=== PATIENT | female | born 1960 | race Caucasian/White ===

== ENCOUNTER 2021-08-28 19:52 | Outpatient (CLI) | payer MEDICARE, MEDICAID | END 2021-08-28 19:53 | disposition critical access hospital (66) | LOC: EMS 19:52 | DX: R06.02 Shortness of breath (principal); R07.9 Chest pain, unspecified; R06.2 Wheezing; R53.1 Weakness | CPT/HCPCS: A0425; A0427 ==

== ENCOUNTER 2021-08-28 20:17 | Inpatient (IN) | payer MEDICARE, MEDICAID ==
[2021-08-28] MEDS ORDERED: ALBUTEROL NEB 2.5 MG/3 ML INH STA ×2 (20:32→20:41)
[2021-08-28] MEDS ORDERED: MORPHINE 2 MG/ML CARPUJECT IVP STA ×2 (20:32→22:03)
--- NOTE | 2021-08-28 20:35 | ED Physician Documentation ---
PD HPI DYSPNEA - Stated complaint Stated Complaint: CP/SOA - Chief complaint Chief Complaint: Cardiac - History obtained from History obtained from: Patient - History of Present Illness Timing - onset: How many days ago (2-3) Timing - onset during: Rest, Light activity Timing - duration: Days (2-3) Inciting event(s): URI (states having fevers, chills, cough and dyspnea. She states her partner at home with "cold symptoms" this past week.) Improved by: No: Inhaler/neb Review of Systems Constitutional: reports: Chills, Myalgias, Fatigue Nose: reports: Congestion Throat: denies: Sore throat Cardiac: reports: Palpitations. denies: Chest pain / pressure Respiratory: reports: Dyspnea, Cough, Wheezing GI: denies: Vomiting, Diarrhea Skin: reports: Lesions (chronic lower leg ulcers. No particular treatment.) Musculoskeletal: reports: Extremity swelling (chronic). denies: Neck pain, Back pain Neurologic: reports: Generalized weakness. denies: Focal weakness, Numbness, Syncope, Headache PD PAST MEDICAL HISTORY - Past Medical History Cardiovascular: None Respiratory: Asthma Neuro: Multiple sclerosis (patient states MS, but no meds, no prior record of it and she denies having Neurologist. ) Endocrine/Autoimmune: None Derm: Other (chronic leg swelling/lymphedema, with skin sores. ) - Present Medications Home Medications: Ambulatory Orders Medication Instructions Recorded Confirmed Warfarin [Coumadin] 08/28/21 - Allergies Allergies/Adverse Reactions: Allergies Allergy/AdvReac Type Severity Reaction Status Date / Time No Known Drug Allergies Allergy Verified 08/28/21 20:29 PD ED PE NORMAL - Vitals Vital signs reviewed: Yes (tachypnea, soft voice/weak. ) - General General: Alert and oriented X 3, Well developed/nourished - HEENT HEENT: Pharynx benign. No: Moist mucous membranes - Neck Neck: Supple, no meningeal sign, No adenopathy - Cardiac Cardiac: No murmur. No: RRR (tachycardic but regular. ) - Respiratory Respiratory: No: Clear bilaterally (coarse diffusely with exp hwheezing. fast breathing rate. Soft voice. Able to talk just few words at a time. Needing to sit upright. ) - Abdomen Abdomen: Soft, Non tender, Other (obese) - Rectal Rectal: Deferred - Back Back: No CVA TTP - Derm Derm: Normal color, Warm and dry - Extremities Extremities: Other (bilateral chronic skin thickening and edema c/w likely lymph edema both legs. There is ulcerative change left lateral mid lower leg with some yellow base. Superficial ulceration right anterior lower leg. ) - Neuro Neuro: No motor deficit Results - Vitals Vitals: Vital Signs - 24 hr 08/28/21 08/28/21 08/28/21 20:15 20:30 20:42 Temperature 36.1 C L Heart Rate 147 H 158 H Respiratory 29 H 38 H Rate Blood Pressure 142/114 H O2 Saturation 99 88 L 08/28/21 08/28/21 08/28/21 20:56 21:00 21:25 Temperature Heart Rate 144 H 144 H 143 H Respiratory 37 H 40 H 36 H Rate Blood Pressure 138/95 H 153/100 H 155/91 H O2 Saturation 93 94 98 08/28/21 08/28/21 08/28/21 21:30 21:35 21:55 Temperature Heart Rate 140 H 127 H 138 H Respiratory 30 H 36 H 28 H Rate Blood Pressure 150/94 H 142/114 H 141/115 H O2 Saturation 99 97 92 Oxygen O2 Source Nasal cannula Oxygen Flow Rate 2 - EKG (time done) 20:26 Rate: Rate (enter#) (146) Rhythm: Sinus tachycardia [place]: Normal Ischemia: Non specific changes. No: ST elevation c/w ischemia - Labs Labs: Laboratory Tests 08/28/21 08/28/21 08/28/21 20:32 20:51 20:51 WBC 3.3 L RBC 4.63 Hgb 13.2 Hct 40.3 MCV 87.0 MCH 28.5 MCHC 32.8 RDW 15.0 Plt Count 196 MPV 10.5 Neut # (Auto) 1.8 Lymph # (Auto) 1.3 L [place] # (Auto) 0.1 Eos # (Auto) 0.0 Baso # (Auto) 0.0 Absolute Nucleated RBC 0.00 Nucleated RBC % 0.0 PT 14.5 H INR 1.3 H D-Dimer 717.3 H Sodium Potassium Chloride Carbon Dioxide Anion Gap BUN Creatinine Estimated GFR (MDRD) Glucose Calcium Total Bilirubin AST ALT Alkaline Phosphatase Troponin I High Sens B-Natriuretic Peptide Total Protein Albumin Globulin Albumin/Globulin Ratio Lipase Nasal Adenovirus (PCR) NOT DETECTED Nasal B. parapertussis DNA (PCR) NOT DETECTED Nasal Coronavir 229E PCR NOT DETECTED Nasal Coronavir HKU1 PCR NOT DETECTED Nasal Coronavir NL63 PCR NOT DETECTED Nasal Coronavir OC43 PCR NOT DETECTED Nasal Enterovir/Rhinovir PCR NOT DETECTED Nasal Influenza B PCR NOT DETECTED Nasal Influenza A PCR NOT DETECTED Nasal Parainfluen 1 PCR NOT DETECTED Nasal Parainfluen 2 PCR NOT DETECTED Nasal Parainfluen 3 PCR NOT DETECTED Nasal Parainfluen 4 PCR NOT DETECTED Nasal RSV (PCR) NOT DETECTED Nasal B.pertussis DNA PCR NOT DETECTED Nasal C.pneumoniae (PCR) NOT DETECTED Bhavik Human Metapneumo PCR NOT DETECTED Nasal M.pneumoniae (PCR) NOT DETECTED Nasal SARS-CoV-2 (PCR) DETECTED A 08/28/21 08/28/21 08/28/21 20:51 20:51 20:51 WBC RBC Hgb Hct MCV MCH MCHC RDW Plt Count MPV Neut # (Auto) Lymph # (Auto) [place] # (Auto) Eos # (Auto) Baso # (Auto) Absolute Nucleated RBC Nucleated RBC % PT INR D-Dimer Sodium 131 L Potassium 3.9 Chloride 97 L Carbon Dioxide 23 Anion Gap 11.0 BUN 13 Creatinine 0.7 Estimated GFR (MDRD) 86 L Glucose 134 H Calcium 8.0 L Total Bilirubin 0.6 AST 41 ALT 31 Alkaline Phosphatase 164 H Troponin I High Sens 37.4 H* B-Natriuretic Peptide 335 H Total Protein 6.9 Albumin 2.9 L Globulin 4.0 Albumin/Globulin Ratio 0.7 L Lipase 27 Nasal Adenovirus (PCR) Nasal B. parapertussis DNA (PCR) Nasal Coronavir 229E PCR Nasal Coronavir HKU1 PCR Nasal Coronavir NL63 PCR Nasal Coronavir OC43 PCR Nasal Enterovir/Rhinovir PCR Nasal Influenza B PCR Nasal Influenza A PCR Nasal Parainfluen 1 PCR Nasal Parainfluen 2 PCR Nasal Parainfluen 3 PCR Nasal Parainfluen 4 PCR Nasal RSV (PCR) Nasal B.pertussis DNA PCR Nasal C.pneumoniae (PCR) Bhavik Human Metapneumo PCR Nasal M.pneumoniae (PCR) Nasal SARS-CoV-2 (PCR) PD MEDICAL DECISION MAKING - ED course Complexity details: reviewed results (chest xray with interstitial changes diffusely: consider CHF, edema, pneumonia - it looks covid-like to me. Unable to get CT-A chest due to unable to lie flat. Given Lovenox in case. [place], CXR very much looking COVID pneumonitis. ), re-evaluated patient (improved work of breathing, but still needing oxygen supplementation, now down to NC and maintaining about 90%. Unable to lie less than 60 degrees without worse dyspnea. ), considered differential (recent URI symptoms, so consider COVID. Also consider COPD/asthma, CHF. History of DVTs, so consider PEs. ), d/w patient - Critical Care Time(min): 45 Time Includes: Direct patient care, Reassess patient, Document care, Coordinate care, See progress note Data interpretation: Labs, CXR, See progress note Procedures excluded from critical care time: EKG Departure - Departure Disposition: 66 [facility] DC/Xfer Clinical Impression: Pneumonia due to COVID-19 virus, Hypoxia, Anticoagulant long-term use, Lymphedema Dyspnea Qualifiers: Dyspnea type: shortness of breath Qualified Code(s): R06.02 - Shortness of breath; R06.00 - Dyspnea, unspecified; R06.01 - Orthopnea Chest pain Qualifiers: Chest pain type: chest pain on breathing Qualified Code(s): R07.1 - Chest pain on breathing; R07.81 - Pleurodynia Leg ulcer, left Qualifiers: Non-pressure ulcer stage: unspecified non-pressure ulcer stage Qualified Code(s): L97.929 - Non-pressure chronic ulcer of unspecified part of left lower leg with unspecified severity Condition: Stable Record reviewed to determine appropriate education?: Yes Discharge Date/Time: 08/29/21 00:25
[2021-08-28] MEDS ORDERED: ALBUTEROL NEB 2.5 MG/3 ML INH ONE (20:40)
[2021-08-28] MEDS ORDERED: METOPROLOL 5 MG/5 ML VIAL IVP STA (20:52)
--- NOTE | 2021-08-28 21:03 | XRAY Report ---
PROCEDURE: Chest 1 View X-Ray INDICATIONS: Chest Pain TECHNIQUE: One view of the chest was acquired. COMPARISON: None. FINDINGS: Surgical changes and devices: None. Lungs and pleura: Trace bilateral pleural effusion is seen with blunting of bilateral costophrenic an gles. No gross pneumothorax. Pulmonary vascular congestion is seen with hazy opacities throughout poly ateral lung smith concerning for pulmonary edema and bilateral multilobar infiltrates. Mediastinum: Mediastinal contours appear normal. Heart size is enlarged. Bones and chest wall: No suspicious bony lesions. Overlying soft tissues appear unremarkable. IMPRESSION: Congestive changes and pulmonary edema. Underlying bilateral scattered infiltrates cannot be excluded . Trace bilateral pleural effusion. No gross pneumothorax. Reviewed by: Jeff Sweeney MD on 08/28/2021 9:01 PM PST Approved by: Jeff Sweeney MD on 08/28/2021 9:01 PM PST Station ID: [id number]
[2021-08-28 21:07] LABS: BASOPHILS % (AUTO) 0.3 %; HCT - HEMATOCRIT 40.3 % (37.0-47.0); HGB - HEMOGLOBIN 13.2 g/dL (12.0-16.0); LYMPHOCYTES # (AUTO) 1.3 10^3/uL (1.5-3.5); LYMPHOCYTES % (AUTO) 39.1 %; MEAN CORPUSCULAR HEMOGLOBIN 28.5 pg (27.0-31.0); MEAN CORPUSCULAR HGB CONC 32.8 g/dL (32.0-36.0); MEAN PLATELET VOLUME 10.5 fL (7.9-10.8); MONOCYTES # (AUTO) 0.1 10^3/uL (0.0-1.0); MONOCYTES % (AUTO) 3.7 %; NEUTROPHILS # (AUTO) 1.8 10^3/uL (1.5-6.6); NEUTROPHILS % (AUTO) 56.6 %; PLT - PLATELET COUNT 196 10^3/uL (130-450); RED BLOOD COUNT 4.63 10^6/uL (4.20-5.40); WHITE BLOOD COUNT 3.3 x10^3/uL (4.8-10.8)
[2021-08-28] MEDS ORDERED: FUROSEMIDE 40 MG/4 ML VIAL IVP STA (21:19)
[2021-08-28 21:22] LABS: ALBUMIN 2.9 g/dL (3.2-5.5); ALBUMIN/GLOBULIN RATIO 0.7 (1.0-2.2); BILIRUBIN,TOTAL 0.6 mg/dL (0.2-1.0); CREATININE 0.7 mg/dL (0.4-1.0); POTASSIUM 3.9 mmol/L (3.5-5.0); TOTAL PROTEIN 6.9 g/dL (6.7-8.2)
[2021-08-28 21:23] LABS: INR 1.3 (0.8-1.2); PT - PROTHROMBIN TIME 14.5 secs (9.9-12.6)
[2021-08-28 21:30] LABS: D-DIMER 717.3 ng/mL (200.0-255.0)
[2021-08-28] MEDS ORDERED: iohexoL-300 100 ML VIAL ONE (21:51)
[2021-08-28 22:07] LABS: CORONAVIRUS 229E-RESP PCR NOT DETECTED; CORONAVIRUS HKU1-RESP PCR NOT DETECTED; CORONAVIRUS NL63-RESP PCR NOT DETECTED; CORONAVIRUS OC43-RESP PCR NOT DETECTED
[2021-08-28 22:08] LABS: HUMAN METAPNEUMOVIRUS NOT DETECTED; INFLUENZA A- RESP PCR PANEL NOT DETECTED; RHINOVIRUS/ENTEROVIRUS NOT DETECTED; SARS-CoV-2 -RESP PCR PANEL DETECTED
[2021-08-28 22:09] LABS: B. PARAPERTUSSIS- RESP PCR PAN NOT DETECTED; B. PERTUSSIS- RESP PCR PANEL NOT DETECTED; C. PNEUMONIAE- RESP PCR PANEL NOT DETECTED; INFLUENZA B - RESP PCR PANEL NOT DETECTED; M. PNEUMONIAE- RESP PCR PANEL NOT DETECTED; PARAINFLUENZA VIRUS 1 NOT DETECTED; PARAINFLUENZA VIRUS 2 NOT DETECTED; PARAINFLUENZA VIRUS 3 NOT DETECTED; PARAINFLUENZA VIRUS 4 NOT DETECTED; RSV- RESP PCR PANEL NOT DETECTED
[2021-08-28] MEDS ORDERED: ENOXAPARIN 100 MG/ML SYRINGE SUBQ STA (22:40)
[2021-08-28] MEDS ORDERED: ONDANSETRON ODT 4 MG TABLET TL PRN (22:50)
[2021-08-28] MEDS ORDERED: REMDESIVIR 100MG VIAL 200 MG in SODIUM CHLORIDE 0.9% 250 ML IV ONE (23:00)
[2021-08-28] MEDS ORDERED: ENOXAPARIN 40 MG/0.4 ML SYRINGE SUBQ SCH (23:00)
[2021-08-29] MEDS: oxyCODONE 5 MG TABLET PO PRN ×2 (01:15→05:15)
[2021-08-29] MEDS: SODIUM CHLORIDE FLUSH 0.9% 10 ML SYRINGE IVP SCH ×3 (01:15→17:34)
[2021-08-29] MEDS: LACTATED RINGERS 1,000 ML IV SCH ×2 (01:15→05:28)
[2021-08-29] MEDS: ACETAMINOPHEN 325 MG TABLET PO PRN (01:15)
--- NOTE | 2021-08-29 01:49 | HISTORY & PHYSICAL EXAMINATION ---
Chief Complaint - Chief Complaint Chief Complaint: Progressive shortness of breath for the last 1 week History of Present Illness - Admitted From Admitted From:: Home via EMS - History Obtained From Records Reviewed: [facility] History obtained from: Dr. Abdalla and her partner Claudia Bass Exam Limitations: Severe shortness of breath and fatigue - History of Present Illness HPI Comment/Other: This is a patient who has either Parkinson's disease or multiple sclerosis or both but has not seen a neurologist for over 12 years. She has not seen a primary care provider in probably 11 years. She lives with her partner since and they moved to the [place] approximately 2009. I am unable to get a history from the patient because of severe dyspnea and such a weak, almost inaudible voice. Her partner cannot state why they have not been able to find care. Her last primary care provider was Dr. Escalera in [place]. The patient used to take Coumadin for history of blood clots that were in 2009. But since she stopped s eeing her primary care provider, has not had Coumadin. Again, her partner is unclear as to why they let the prescription lapse. She is described as a limited mobility patient due to her movement disorder. She spends most of her time sitting or laying in bed. She is able to ambulate to go to the bathroom, or to occasionally take a shower. She can feed herself, and dress her self. She is disabled due to her neurological disease. Her partner does not describe any mental illness, cognitive deficit. She is unable to describe why the lack of medical care but they have been pondering moving somewhere where it would be easier for them. The patient has developed ulcers on her legs and has been putting Neosporin on them, cleaning them. But has not sought medical care for them. In the last week, she developed a cough, and gradually worsening chest congestion, lethargy. Her partner denies fever. About 2 to 3 days ago she started getting more short of breath and having sharp pleuritic chest pain. She is unvaccinated. Today, the sharp pleuritic chest pain was so severe that it was taking away her breath. They called an ambulance. In the ambulance she was given Solu-Medrol 125 mg, morphine 2 mg, albuterol. By the time she was in our emergency room she is on a nonrebreather mask with an O2 sat of 99%. She was breathing anywhere from 29 to 40 breaths a minute. Blood pressure was 142/114. Heart rate was 147. She was given albuterol, Lovenox, Lasix, metoprolol, and morphine in the emergency room. She is still severely short of breath with fast shallow respirations. She has leg ulcers that are quite deep. Chest x-ray has congestive heart failure changes with pulmonary edema. She has underlying bilateral scattered infiltrates. It is difficult to say whether this is pneumonia or CHF. Trace bilateral pleural effusion. She was COVID-positive. The ER provider did try to order a CT pulmonary angiogram but the patient is so short of breath she is unable to lay down. She panics and came off the CT table on her own by leaping off the table. While she lives with her life partner since 2008, they are not legally . They live more as roommates. Her life partner says that she has no legal standing with her partner. There is no formal power of claim attorney. The patient does have a daughter who she is estranged from and has not spoken to in years. Her partner, Claudia, says there is no phone number available to call the daughter. As such the patient is a full code until we can have an Advanced Care Planning coversation with her. 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 As such there is no family history about her parents or her siblings. She did have 1 daughter but is not in contact with her. Living arrangement: At home Living Situation: With spouse/s.o. Social History Notes: She smokes a half a pack per day. Has smoked since her 20s. She does not have a history of alcohol abuse. She occasionally used to do marijuana. If she was having an episode of MS she would do to toke from a cigarette, and her episode would immediately resolve within 30 minutes. She is on disability from the multiple sclerosis. Meds/Allgy - Home Medications Home Medications: Ambulatory Orders Medication Instructions Recorded Confirmed Warfarin [Coumadin] 08/28/21 - Allergies Allergies/Adverse Reactions: Allergies Allergy/AdvReac Type Severity Reaction Status Date / Time No Known Drug Allergies Allergy Verified 08/28/21 20:29 Review of Systems - All Other Systems All Other Systems: reports: Other (Unable to get a review of systems from this unfortunate lady who is severely short of breath, is orthopneic, and whose voice is very, very weak) Prior Level of Functionality: Described as slow-moving, but able to dress herself and feed herself with some assistance from her significant other Exam - Vital Signs Reviewed Vital Signs: Yes Vital Signs: Vital Signs x48h Temp Pulse Resp BP Pulse Ox 08/28/21 23:30 137 H 22 139/84 H 91 L 08/28/21 21:55 138 H 28 H 141/115 H 92 08/28/21 21:35 127 H 36 H 142/114 H 97 08/28/21 21:30 140 H 30 H 150/94 H 99 08/28/21 21:25 143 H 36 H 155/91 H 98 08/28/21 21:00 144 H 40 H 153/100 H 94 08/28/21 20:56 144 H 37 H 138/95 H 93 08/28/21 20:42 158 H 38 H 08/28/21 20:30 88 L 08/28/21 20:15 36.1 C L 147 H 29 H 142/114 H 99 - Physical Exam General Appearance: positive: Severe distress (Cannot go any lower than 45 degrees. Has to be sitting upright and has fast, panting, shallow respiration without use of accessory muscles.), Other (Moderately obese female, edentulous, most of her weight is centered around belly which is large and protuberant.She appears to have overall good body hygiene. She is not malodorous. No Yen. Feet may have dependent rubor but there is no dirt) Eyes Bilateral: positive: PERRL, EOMI ENT: positive: Dry mucous membranes (Mouth breathing) Neck: positive: No JVD. negative: Stiff neck Respiratory: positive: Wheezes, Rales, Other (Respiratory rate as high as 40, now dropping into her 20s.) Cardiovascular: positive: Regular rate & rhythm, Tachycardia. negative: Systolic murmur, Gallop/S4 Peripheral Pulses: positive: 0 Abdomen: positive: Non-tender, Nml bowel sounds, No distention Skin: positive: Warm, Dry, Other (Dependent rubor of both legs starting from the shins on down with purple blanching discoloration. Appears to have venous stasis ulcers through skin level in the upper right calf, and the left anterior bentley. The rubor does improve when her legs are elevated.No redness, heat or evidence of cellulitis) Extremities: positive: Full ROM, Pedal edema (2+ starting below the knees down to her feet, bilateral), Other (Wearing Kerlix bandages over her ulcers on her legs, and Kerlix is taken down. Kerlix has dried serous yellow fluid embedded in it. No blood.) Neurologic/Psychiatric: positive: Oriented x3, CN's nml (2-12), Motor nml, Weakness (Able to sit up and stand to help nurses reposition her in the bed and clean bed after episode of urinary incontinence. No focal deficits.) Conclusion/Plan - Problem List (1) Acute respiratory failure with hypoxemia Conclusion/Plan: At this time she is COVID-positive. But she does not have the classic diffuse infiltrative changes of viral pneumonia. The radiologist is interpreting her chest x-ray is more congestive heart failure than acute infectious infiltrate. She does not have a history of congestive heart failure. She is a full code. As such if she deteriorates further, she can be put on BiPAP. From BiPAP to intubation if necessary. At this time we will treat the next 2 problems to see if she will improve. (2) Pneumonia due to COVID-19 virus Conclusion/Plan: She is COVID-19 positive status. No clear history with fever, cough, phlegm, and she is unvaccinated. We will go ahead and start remdesivir protocol, Decadron. (3) Acute CHF Conclusion/Plan: Possible. She has received Lasix in the emergency room. There was no description as whether or not she responded to that. I am not seeing JVD on neck exam, and she does have slight crackles. Definite orthopnea where she cannot lay down. Definite leg edema. The edema appears chronic in her legs with rubor, cracked skin, and possible venous stasis ulcers. Plan: Echocardiogram in the morning Contact her primary care provider office to see if they have any records on her I am to give her IV fluids because she is described as having decreased p.o. intake. Qualifiers: Heart failure type: unspecified Qualified Code(s): I50.9 - Heart failure, unspecified (4) History of DVT in adulthood Conclusion/Plan: As well as pulmonary emboli. This patient is describes having sudden onset of pleuritic chest pain that has been getting gradually worse for the last couple of days. Today was finally so severe that ambulance was called. We are unable to get her to do a CT angiogram because she is unable to lay flat on the table. She had enough strength and wherewithal to get off the CT table on her own before the graphic art technician to get to her. But she states stable and upright until he got her back on the ER [facility]. Plan: Therapeutic Lovenox empirically Aim for venous Dopplers to see if we can document DVT CT angiogram when able to lay flat (5) Chest pain Conclusion/Plan: Again, fear is that of pulmonary embolus. Troponins are minimally elevated. We will repeat troponins. On Lovenox, therapeutic Qualifiers: Chest pain type: chest pain on breathing Qualified Code(s): R07.1 - Chest pain on breathing; R07.81 - Pleurodynia (6) Venous stasis ulcers of both lower extremities Conclusion/Plan: Right leg has been on the calf, left leg has 1 upper bentley area. Keep clean. Xeroform dressing covered with Kerlix. No evidence of cellulitis at this time. (7) Sinus tachycardia Conclusion/Plan: Unclear if her sinus tachycardia is due to PE, anxiety, hypoxia. She is placed on therapeutic Lovenox, has been given Lasix, but I have not given her Ativan. We will resume as needed Lopressor. (8) Self neglect Conclusion/Plan: I have reached this conclusion after speaking to her partner on the phone. Partner also appears confused, cannot quite explain why things have occurred the way they have. She appears helpless in the face of the patient's lack of desire to follow through with doctor visits or medication renewals. At this time I would like social work to spend some time with the patient. Try and figure out if this is true self-neglect, or if there is a cognitive problem. I will ask for occupational therapy eval for cognitive eval. I do not know if Adult Protective Services needs to be notified. - Lab Results Lab results reviewed: Yes Fish Bones: 08/28/21 20:51 08/28/21 20:51 - Diagnostic Imaging Results Diagnostic Imaging Results: positive: Final report reviewed Diagnostic Imaging Results Comments: Chest x-ray: Congestive heart changes and pulmonary edema. Underlying bilateral scattered infiltrates. No pneumothorax. - EKG Results EKG Interpreted Independently: No EKG Comparison: No prior EKG EKG Findings: Sinus tachycardia 246. Slight ST depression in V4 through V6. U-shaped ST depression in 2, 3, aVF. Core Measures - Anticipated LOS I expect patient to be DC'd or transferred within 96 hours.: Yes - DVT/VTE - Prophylaxis VTE/DVT Device ordered at admit?: Yes
[2021-08-29] MEDS: METOPROLOL 5 MG/5 ML VIAL IVP PRN ×2 (02:40→14:22)
[2021-08-29] MEDS ORDERED: METOPROLOL 5 MG/5 ML VIAL IVP STA ×2 (06:28→20:58)
[2021-08-29 06:37] LABS: BASOPHILS % (AUTO) 0.4 %; HCT - HEMATOCRIT 41.2 % (37.0-47.0); HGB - HEMOGLOBIN 13.4 g/dL (12.0-16.0); MEAN CORPUSCULAR HEMOGLOBIN 28.3 pg (27.0-31.0); MEAN CORPUSCULAR HGB CONC 32.5 g/dL (32.0-36.0); MEAN CORPUSCULAR VOLUME 86.9 fL (81.0-99.0); MEAN PLATELET VOLUME 10.7 fL (7.9-10.8); NEUTROPHILS % (AUTO) 53.9 %; PLT - PLATELET COUNT 212 10^3/uL (130-450); RED BLOOD COUNT 4.74 10^6/uL (4.20-5.40); RED CELL DISTRIBUTION WIDTH 14.9 % (12.0-15.0); WHITE BLOOD COUNT 2.7 x10^3/uL (4.8-10.8)
[2021-08-29 06:44] LABS: SLIDE REVIEW? Indicated
[2021-08-29 06:51] LABS: CALCIUM 7.9 mg/dL (8.5-10.3); CREATININE 0.8 mg/dL (0.4-1.0); CRP - C-REACTIVE PROTEIN 6.1 mg/dL (0-1.0); POTASSIUM 4.4 mmol/L (3.5-5.0)
[2021-08-29] MEDS ORDERED: NON FORMULARY MED (Remdesivir 200 MG) IV SCH (07:00)
--- NOTE | 2021-08-29 07:28 | PROVIDER PROGRESS NOTE ---
Subjective - Prog Note Date Prog Note Date: 08/29/21 - Subjective Subjective: She still feels short of breath but is improved. She still cannot lay flat. Still has an occasional cough. She continues to complain of left-sided chest pain and it is tender on palpation there. She does not recall falling. She has not seen a doctor in over 10 years. She could not give me a reason as to why. Current Medications - Current Medications Current Medications: Active Medications Acetaminophen (Acetaminophen 325 Mg Tablet) 650 mg PO Q4HR PRN PRN Reason: Pain 1 to 4 Last Admin: 08/29/21 01:15 Dose: 650 mg Dexamethasone (Dexamethasone 4 Mg/Ml Vial) 6 mg IVP DAILY [facility] Stop: 09/07/21 09:01 Last Admin: 08/29/21 08:10 Dose: 6 mg Enoxaparin Sodium (Enoxaparin 120 Mg/0.8 Ml Syringe) 115 mg SUBQ BID [facility] Remdesivir 100 mg/ Sodium (Chloride) 100 mls @ 200 mls/hr IV DAILY [facility] Stop: 09/02/21 09:29 Insulin Aspart (Insulin Aspart 300 Unit/3 Ml Pen) 1 - 9 unit SUBQ 0800,1200,1700,2100 [facility]; Protocol Last Admin: 08/29/21 11:47 Dose: 1 unit Insulin Glargine (Insulin Glargine 300 Unit/3 Ml Pen) 10 unit SUBQ QPM [facility] Metoprolol Tartrate (Metoprolol 5 Mg/5 Ml Vial) 5 mg IVP Q6HR [facility] Morphine Sulfate (Morphine 2 Mg/Ml Carpuject) 2 mg IVP Q2HR PRN PRN Reason: Pain 8 to 10 Multivitamins/Minerals (Multivitamin W/Minerals Tablet) 1 tab PO DAILYWM [facility] Last Admin: 08/29/21 14:51 Dose: 1 tab Ondansetron HCl (Ondansetron Odt 4 Mg Tablet) 4 mg TL Q6HR PRN PRN Reason: Nausea / Vomiting Ondansetron HCl (Ondansetron 4 Mg/2 Ml Vial) 4 mg IVP Q6HR PRN PRN Reason: Nausea / Vomiting Oxycodone HCl (Oxycodone 5 Mg Tablet) 5 mg PO Q4HR PRN PRN Reason: Pain 5 to 7 Last Admin: 08/29/21 05:15 Dose: 5 mg Polyethylene Glycol (Polyethylene Glycol 3350 17 Gm Packet) 17 gm PO DAILY [facility] Sodium Chloride (Sodium Chloride Flush 0.9% 10 Ml Syringe) 10 ml IVP PRN PRN PRN Reason: NEEDED PER PROVIDER ORDERS Last Admin: 08/29/21 14:22 Dose: 10 ml Sodium Chloride (Sodium Chloride Flush 0.9% 10 Ml Syringe) 10 ml IVP 0100,0900,1700 [facility] Last Admin: 08/29/21 08:12 Dose: 10 ml No Known Home Medications 08/29/21 Objective - Vital Signs/Intake & Output Reviewed Vital Signs: Yes Vital Signs: Vital Signs x48h Temp Pulse Pulse Resp BP BP BP 08/29/21 07:00 101 H 108/79 08/29/21 06:54 107 H 112/73 08/29/21 06:49 137 H 124/87 H 08/29/21 06:45 124/87 H 08/29/21 05:00 36.4 C L 134 H 24 127/91 H 08/29/21 03:15 120 H 119/95 H 08/29/21 03:10 119/95 H 08/29/21 02:55 116 H 120/88 H 08/29/21 02:50 118 H 122/96 H 08/29/21 02:45 113 H 123/87 H 08/29/21 02:40 138 H 152/98 H 138/85 H 158/104 H 08/29/21 01:44 36.9 C 135 H 24 154/98 H 08/29/21 01:30 140 H 158/104 H 08/29/21 01:26 137 H 154/95 H 08/29/21 01:04 109 H 08/28/21 23:30 137 H 22 139/84 H Pulse Ox 08/29/21 07:00 08/29/21 06:54 08/29/21 06:49 08/29/21 06:45 08/29/21 05:00 94 08/29/21 03:15 08/29/21 03:10 08/29/21 02:55 08/29/21 02:50 08/29/21 02:45 08/29/21 02:40 08/29/21 01:44 98 08/29/21 01:30 08/29/21 01:26 08/29/21 01:04 08/28/21 23:30 91 L Intake & Output: Intake & Output 08/26/21 08/27/21 08/28/21 08/29/21 23:59 23:59 23:59 23:59 Intake Total 1400 Output Total 600 Balance 800 - Objective General Appearance: positive: Mild distress ENT: positive: Other (Oxymizer in place.) Neck: positive: Nml inspection Respiratory: positive: Wheezes, Rhonchi. negative: Chest non-tender (Left-sided chest tenderness over the posterior ribs.), Rales Cardiovascular: positive: Tachycardia. negative: Systolic murmur Abdomen: positive: Non-tender, No distention. negative: Tenderness Skin: positive: Warm, Dry, Other (Chronic venous stasis changes and ulcerations noted) Extremities: positive: Pedal edema (+1 edema in bilateral lower extremities) Neurologic/Psychiatric: negative: Disoriented to person, Disoriented to place - Lab Results Fish Bones: 08/30/21 05:12 08/30/21 05:12 Other Labs: Lab Results x24hrs 08/29/21 08/29/21 08/29/21 Range/Units 06:27 06:27 06:27 WBC (4.8-10.8) x10^3/uL RBC (4.20-5.40) 10^6/uL Hgb (12.0-16.0) g/dL Hct (37.0-47.0) % MCV (81.0-99.0) fL MCH (27.0-31.0) pg MCHC (32.0-36.0) g/dL RDW (12.0-15.0) % Plt Count (130-450) 10^3/uL MPV (7.9-10.8) fL Neut # (Auto) (1.5-6.6) 10^3/uL Lymph # (Auto) (1.5-3.5) 10^3/uL [place] # (Auto) (0.0-1.0) 10^3/uL Eos # (Auto) (0.0-0.7) 10^3/uL Baso # (Auto) (0.0-0.1) 10^3/uL Absolute Nucleated RBC x10^3/uL Nucleated RBC % /100WBC Manual Slide Review PT (9.9-12.6) secs INR (0.8-1.2) D-Dimer 521.1 H (200.0-255.0) ng/mL Sodium 130 L (135-145) mmol/L Potassium 4.4 (3.5-5.0) mmol/L Chloride 98 L (101-111) mmol/L Carbon Dioxide 22 (21-32) mmol/L Anion Gap 10.0 (6-13) BUN 20 (6-20) mg/dL Creatinine 0.8 (0.4-1.0) mg/dL Estimated GFR (MDRD) 73 L (>89) Glucose 186 H (70-100) mg/dL Calcium 7.9 L (8.5-10.3) mg/dL Total Bilirubin (0.2-1.0) mg/dL AST (10-42) IU/L ALT (10-60) IU/L Alkaline Phosphatase (42-121) IU/L Troponin I High Sens (2.3-14.8) ng/L C-Reactive Protein 6.1 H (0-1.0) mg/dL B-Natriuretic Peptide 483 H (5-100) pg/mL Total Protein (6.7-8.2) g/dL Albumin (3.2-5.5) g/dL Globulin (2.1-4.2) g/dL Albumin/Globulin Ratio (1.0-2.2) Lipase (22-51) U/L Nasal Adenovirus (PCR) Nasal B. parapertussis DNA (PCR) Nasal Coronavir 229E PCR Nasal Coronavir HKU1 PCR Nasal Coronavir NL63 PCR Nasal Coronavir OC43 PCR Nasal Enterovir/Rhinovir PCR Nasal Influenza B PCR Nasal Influenza A PCR Nasal Parainfluen 1 PCR Nasal Parainfluen 2 PCR Nasal Parainfluen 3 PCR Nasal Parainfluen 4 PCR Nasal RSV (PCR) Nasal B.pertussis DNA PCR Nasal C.pneumoniae (PCR) Bhavik Human Metapneumo PCR Nasal M.pneumoniae (PCR) Nasal SARS-CoV-2 (PCR) 08/29/21 08/29/21 08/28/21 Range/Units 06:27 02:10 20:51 WBC 2.7 L (4.8-10.8) x10^3/uL RBC 4.74 (4.20-5.40) 10^6/uL Hgb 13.4 (12.0-16.0) g/dL Hct 41.2 (37.0-47.0) % MCV 86.9 (81.0-99.0) fL MCH 28.3 (27.0-31.0) pg MCHC 32.5 (32.0-36.0) g/dL RDW 14.9 (12.0-15.0) % Plt Count 212 (130-450) 10^3/uL MPV 10.7 (7.9-10.8) fL Neut # (Auto) (1.5-6.6) 10^3/uL Lymph # (Auto) (1.5-3.5) 10^3/uL [place] # (Auto) (0.0-1.0) 10^3/uL Eos # (Auto) (0.0-0.7) 10^3/uL Baso # (Auto) (0.0-0.1) 10^3/uL Absolute Nucleated RBC x10^3/uL Nucleated RBC % /100WBC Manual Slide Review Indicated PT (9.9-12.6) secs INR (0.8-1.2) D-Dimer (200.0-255.0) ng/mL Sodium (135-145) mmol/L Potassium (3.5-5.0) mmol/L Chloride (101-111) mmol/L Carbon Dioxide (21-32) mmol/L Anion Gap (6-13) BUN (6-20) mg/dL Creatinine (0.4-1.0) mg/dL Estimated GFR (MDRD) (>89) Glucose (70-100) mg/dL Calcium (8.5-10.3) mg/dL Total Bilirubin (0.2-1.0) mg/dL AST (10-42) IU/L ALT (10-60) IU/L Alkaline Phosphatase (42-121) IU/L Troponin I High Sens 29.7 H* (2.3-14.8) ng/L C-Reactive Protein (0-1.0) mg/dL B-Natriuretic Peptide 335 H (5-100) pg/mL Total Protein (6.7-8.2) g/dL Albumin (3.2-5.5) g/dL Globulin (2.1-4.2) g/dL Albumin/Globulin Ratio (1.0-2.2) Lipase (22-51) U/L Nasal Adenovirus (PCR) Nasal B. parapertussis DNA (PCR) Nasal Coronavir 229E PCR Nasal Coronavir HKU1 PCR Nasal Coronavir NL63 PCR Nasal Coronavir OC43 PCR Nasal Enterovir/Rhinovir PCR Nasal Influenza B PCR Nasal Influenza A PCR Nasal Parainfluen 1 PCR Nasal Parainfluen 2 PCR Nasal Parainfluen 3 PCR Nasal Parainfluen 4 PCR Nasal RSV (PCR) Nasal B.pertussis DNA PCR Nasal C.pneumoniae (PCR) Bhavik Human Metapneumo PCR Nasal M.pneumoniae (PCR) Nasal SARS-CoV-2 (PCR) 08/28/21 08/28/21 08/28/21 Range/Units 20:51 20:51 20:51 WBC (4.8-10.8) x10^3/uL RBC (4.20-5.40) 10^6/uL Hgb (12.0-16.0) g/dL Hct (37.0-47.0) % MCV (81.0-99.0) fL MCH (27.0-31.0) pg MCHC (32.0-36.0) g/dL RDW (12.0-15.0) % Plt Count (130-450) 10^3/uL MPV (7.9-10.8) fL Neut # (Auto) (1.5-6.6) 10^3/uL Lymph # (Auto) (1.5-3.5) 10^3/uL [place] # (Auto) (0.0-1.0) 10^3/uL Eos # (Auto) (0.0-0.7) 10^3/uL Baso # (Auto) (0.0-0.1) 10^3/uL Absolute Nucleated RBC x10^3/uL Nucleated RBC % /100WBC Manual Slide Review PT 14.5 H (9.9-12.6) secs INR 1.3 H (0.8-1.2) D-Dimer 717.3 H (200.0-255.0) ng/mL Sodium 131 L (135-145) mmol/L Potassium 3.9 (3.5-5.0) mmol/L Chloride 97 L (101-111) mmol/L Carbon Dioxide 23 (21-32) mmol/L Anion Gap 11.0 (6-13) BUN 13 (6-20) mg/dL Creatinine 0.7 (0.4-1.0) mg/dL Estimated GFR (MDRD) 86 L (>89) Glucose 134 H (70-100) mg/dL Calcium 8.0 L (8.5-10.3) mg/dL Total Bilirubin 0.6 (0.2-1.0) mg/dL AST 41 (10-42) IU/L ALT 31 (10-60) IU/L Alkaline Phosphatase 164 H (42-121) IU/L Troponin I High Sens 37.4 H* (2.3-14.8) ng/L C-Reactive Protein (0-1.0) mg/dL B-Natriuretic Peptide (5-100) pg/mL Total Protein 6.9 (6.7-8.2) g/dL Albumin 2.9 L (3.2-5.5) g/dL Globulin 4.0 (2.1-4.2) g/dL Albumin/Globulin Ratio 0.7 L (1.0-2.2) Lipase 27 (22-51) U/L Nasal Adenovirus (PCR) Nasal B. parapertussis DNA (PCR) Nasal Coronavir 229E PCR Nasal Coronavir HKU1 PCR Nasal Coronavir NL63 PCR Nasal Coronavir OC43 PCR Nasal Enterovir/Rhinovir PCR Nasal Influenza B PCR Nasal Influenza A PCR Nasal Parainfluen 1 PCR Nasal Parainfluen 2 PCR Nasal Parainfluen 3 PCR Nasal Parainfluen 4 PCR Nasal RSV (PCR) Nasal B.pertussis DNA PCR Nasal C.pneumoniae (PCR) Bhavik Human Metapneumo PCR Nasal M.pneumoniae (PCR) Nasal SARS-CoV-2 (PCR) 08/28/21 08/28/21 Range/Units 20:51 20:32 WBC 3.3 L (4.8-10.8) x10^3/uL RBC 4.63 (4.20-5.40) 10^6/uL Hgb 13.2 (12.0-16.0) g/dL Hct 40.3 (37.0-47.0) % MCV 87.0 (81.0-99.0) fL MCH 28.5 (27.0-31.0) pg MCHC 32.8 (32.0-36.0) g/dL RDW 15.0 (12.0-15.0) % Plt Count 196 (130-450) 10^3/uL MPV 10.5 (7.9-10.8) fL Neut # (Auto) 1.8 (1.5-6.6) 10^3/uL Lymph # (Auto) 1.3 L (1.5-3.5) 10^3/uL [place] # (Auto) 0.1 (0.0-1.0) 10^3/uL Eos # (Auto) 0.0 (0.0-0.7) 10^3/uL Baso # (Auto) 0.0 (0.0-0.1) 10^3/uL Absolute Nucleated RBC 0.00 x10^3/uL Nucleated RBC % 0.0 /100WBC Manual Slide Review PT (9.9-12.6) secs INR (0.8-1.2) D-Dimer (200.0-255.0) ng/mL Sodium (135-145) mmol/L Potassium (3.5-5.0) mmol/L Chloride (101-111) mmol/L Carbon Dioxide (21-32) mmol/L Anion Gap (6-13) BUN (6-20) mg/dL Creatinine (0.4-1.0) mg/dL Estimated GFR (MDRD) (>89) Glucose (70-100) mg/dL Calcium (8.5-10.3) mg/dL Total Bilirubin (0.2-1.0) mg/dL AST (10-42) IU/L ALT (10-60) IU/L Alkaline Phosphatase (42-121) IU/L Troponin I High Sens (2.3-14.8) ng/L C-Reactive Protein (0-1.0) mg/dL B-Natriuretic Peptide (5-100) pg/mL Total Protein (6.7-8.2) g/dL Albumin (3.2-5.5) g/dL Globulin (2.1-4.2) g/dL Albumin/Globulin Ratio (1.0-2.2) Lipase (22-51) U/L Nasal Adenovirus (PCR) NOT DETECTED Nasal B. parapertussis DNA (PCR) NOT DETECTED Nasal Coronavir 229E PCR NOT DETECTED Nasal Coronavir HKU1 PCR NOT DETECTED Nasal Coronavir NL63 PCR NOT DETECTED Nasal Coronavir OC43 PCR NOT DETECTED Nasal Enterovir/Rhinovir PCR NOT DETECTED Nasal Influenza B PCR NOT DETECTED Nasal Influenza A PCR NOT DETECTED Nasal Parainfluen 1 PCR NOT DETECTED Nasal Parainfluen 2 PCR NOT DETECTED Nasal Parainfluen 3 PCR NOT DETECTED Nasal Parainfluen 4 PCR NOT DETECTED Nasal RSV (PCR) NOT DETECTED Nasal B.pertussis DNA PCR NOT DETECTED Nasal C.pneumoniae (PCR) NOT DETECTED Bhavik Human Metapneumo PCR NOT DETECTED Nasal M.pneumoniae (PCR) NOT DETECTED Nasal SARS-CoV-2 (PCR) DETECTED A Assessment/Plan - Problem List (1) Acute respiratory failure with hypoxemia Impression: This is likely multifactorial and related to the COVID-19 pneumonia, congestive heart failure as well as likely pulmonary embolism. We will keep her on Lovenox empirically until we can obtain imaging that does not reveal a DVT or pulmonary embolism. We will also keep on Decadron remdesivir for COVID-19 pneumonia. We will diurese her with Lasix IV. Continue supplemental oxygen for goal saturation greater than 92%. (2) Pneumonia due to COVID-19 virus Impression: Suspect this is contributing to her respiratory failure. She is hypoxic requiring 4 L of oxygen via nasal cannula. X-ray suggests edema as well as bilateral infiltrates which could be infectious. We we will keep her on remdesivir and Decadron. Continue supplemental oxygen. Contact precautions. (3) History of DVT in adulthood Impression: She has a history of DVT in the past but stopped her Coumadin. The concern now is for a pulmonary embolism. We are unable to obtain a CT angiogram as she cannot lay flat for the imaging. We have ordered duplex and this is pending. We are treating her empirically with Lovenox. An echocardiogram today did not suggest right heart strain so would not suspect that she would be a candidate for thrombolytics and therefore we will continue to treat her preemptively with Lovenox. (4) Acute CHF Impression: The concern is for acute diastolic heart failure. Her BNP is increasing and her x-ray suggests edema although this could also be pneumonia due to COVID-19. We will discontinue her IV fluids and give her a dose of 40 mg of IV Lasix. Qualifiers: Heart failure type: diastolic Qualified Code(s): I50.31 - Acute diastolic (congestive) heart failure (5) Chest pain Impression: Do not suspect this is related to coronary artery disease. This likely due to the COVID-19 pneumonia and suspected pulmonary embolism or musculoskeletal in nature. Her troponins are trending down and peaked at just above 30. Echocardiogram shows no wall motion abnormalities. We will continue antico agulation for suspect pulmonary embolism. Tylenol as needed for pain. Qualifiers: Chest pain type: chest pain on breathing Qualified Code(s): R07.1 - Chest pain on breathing; R07.81 - Pleurodynia (6) Venous stasis ulcers of both lower extremities Impression: Suspect this is likely ulcerations due to venous stasis. We will continue with dressing changes and she can follow-up with wound care on outpatient basis. Will order arterial duplex as well.
[2021-08-29 07:35] LABS: ABNORMAL LYMPHS % (MANUAL) 0 %
[2021-08-29 07:39] LABS: BAND NEUTROPHILS % (MANUAL) 2 %; LYMPHOCYTES # (MANUAL) 1.1 10^3/uL (1.5-3.5); LYMPHOCYTES % (MANUAL) 33 %; METAMYELOCYTES % (MANUAL) 1 %; MONOCYTES # (MANUAL) 0.2 10^3/uL (0.0-1.0); NEUTROPHILS # (MANUAL) 1.4 10^3/uL (1.5-6.6); REACTIVE LYMPHS % (MANUAL) 8 %
[2021-08-29 07:42] LABS: DIFFERENTIAL COMMENT MANUAL DIFFERENTIAL; RBC MORPHOLOGY (MULTIPLE) 1+ HYPOCHROMASIA (NORMAL); WBC MORPHOLOGY (MULTIPLE) 2+ REACTIVE LYMPHS (NORMAL)
[2021-08-29] MEDS ORDERED: REMDESIVIR 100MG VIAL 200 MG in SODIUM CHLORIDE 0.9% 250 ML IV ONE (08:00)
[2021-08-29] MEDS: INSULIN ASPART 300 UNIT/3 ML PEN SUBQ SCH ×4 (08:10→22:01)
[2021-08-29] MEDS: DEXAMETHASONE 4 MG/ML VIAL IVP SCH (08:10)
[2021-08-29] MEDS ORDERED: ENOXAPARIN 40 MG/0.4 ML SYRINGE SUBQ SCH (09:00)
[2021-08-29] MEDS: SODIUM CHLORIDE FLUSH 0.9% 10 ML SYRINGE IVP PRN (14:22)
[2021-08-29] MEDS: MULTIVITAMIN W/MINERALS TABLET PO SCH (14:51)
--- NOTE | 2021-08-29 16:43 | PHARMACY PROGRESS NOTE ---
- Best Possible Medication History Admit Date and Time: 08/28/21 4106 Processed by: Pharmacy Medication History completed: Yes As the person ultimately responsible for medication therapy, providers are able to order a medication from an existing home medication list in [facility] via the "Reconcile Routine" prior to Confirmation of that medication by customer support advisor. Such practice is discouraged except when the physician, in their clinical judgment, deems that a medical need exists for a medication without regard to previous use.
[2021-08-29] MEDS ORDERED: FUROSEMIDE 40 MG/4 ML VIAL IVP STA (17:16)
[2021-08-29] MEDS: polyethylene glycoL 3350 17 GM PACKET PO SCH (17:34)
[2021-08-29] MEDS: METOPROLOL 5 MG/5 ML VIAL IVP SCH (18:13)
[2021-08-29 19:31] LABS: ESTIMATED AVERAGE GLUCOSE 157 mg/dL (70-100); HEMOGLOBIN A1c% 7.1 % (4.27-6.07)
[2021-08-29] MEDS: MORPHINE 2 MG/ML CARPUJECT IVP PRN (20:45)
[2021-08-29] MEDS: INSULIN GLARGINE 300 UNIT/3 ML PEN SUBQ SCH (22:02)
[2021-08-29] MEDS: ENOXAPARIN 120 MG/0.8 ML SYRINGE SUBQ SCH (22:43)
[2021-08-29] MEDS: NICOTINE 14 MG PATCH TOP SCH (22:53)
[2021-08-30] MEDS: MORPHINE 2 MG/ML CARPUJECT IVP PRN ×4 (00:01→18:44)
[2021-08-30] MEDS: SODIUM CHLORIDE FLUSH 0.9% 10 ML SYRINGE IVP PRN ×2 (00:03→06:19)
[2021-08-30] MEDS: SODIUM CHLORIDE FLUSH 0.9% 10 ML SYRINGE IVP SCH ×3 (00:03→18:43)
[2021-08-30] MEDS: METOPROLOL 5 MG/5 ML VIAL IVP SCH ×4 (00:04→19:05)
--- NOTE | 2021-08-30 01:39 | Ultrasound Report ---
PROCEDURE: Duplex Ext Veins Bilateral INDICATIONS: QUYEN GONZALEZ TECHNIQUE: Real-time imaging, as well as color and pulse Doppler interrogation, were performed of the deep veins of both legs from the inguinal ligament to the popliteal fossa. COMPARISON: None. FINDINGS: Intraluminal filling defects involving right common femoral vein, superficial femoral vein and poplit eal vein are seen. Similar intraluminal filling defects are noted in left popliteal vein and left profundus femoris vein . Bilateral calf veins and left mid to distal superficial femoral vein are suboptimally evaluated due t o soft tissue swelling and edema. IMPRESSION: Limited study due to significant bilateral lower extremities soft tissue swelling and edema. Extensive deep venous thrombosis in bilateral visualized lower extremity veins as above. Reviewed by: Jeff Sweeney MD on 08/30/2021 1:38 AM PST Approved by: Jeff Sweeney MD on 08/30/2021 1:38 AM PST Station ID: [id number]
[2021-08-30 06:23] LABS: BASOPHILS % (AUTO) 0.3 %; HCT - HEMATOCRIT 41.8 % (37.0-47.0); HGB - HEMOGLOBIN 13.8 g/dL (12.0-16.0); LYMPHOCYTES # (AUTO) 1.8 10^3/uL (1.5-3.5); LYMPHOCYTES % (AUTO) 26.7 %; MEAN CORPUSCULAR HEMOGLOBIN 28.6 pg (27.0-31.0); MEAN CORPUSCULAR VOLUME 86.5 fL (81.0-99.0); MEAN PLATELET VOLUME 10.7 fL (7.9-10.8); MONOCYTES # (AUTO) 0.4 10^3/uL (0.0-1.0); MONOCYTES % (AUTO) 5.5 %; NEUTROPHILS # (AUTO) 4.6 10^3/uL (1.5-6.6); NEUTROPHILS % (AUTO) 67.2 %; PLT - PLATELET COUNT 235 10^3/uL (130-450); RED BLOOD COUNT 4.83 10^6/uL (4.20-5.40); WHITE BLOOD COUNT 6.9 x10^3/uL (4.8-10.8)
[2021-08-30 06:43] LABS: CALCIUM 7.8 mg/dL (8.5-10.3); CREATININE 0.8 mg/dL (0.4-1.0); CRP - C-REACTIVE PROTEIN 4.5 mg/dL (0-1.0)
[2021-08-30] MEDS ORDERED: diltiaZEM INJ 5 MG/ML VIAL IVP ONE (07:32)
--- NOTE | 2021-08-30 07:33 | PROVIDER PROGRESS NOTE ---
Subjective - Prog Note Date Prog Note Date: 08/30/21 - Subjective Subjective: She feels less short of breath today but still feels that she cannot lay flat. Still has left-sided chest/back pain that is tender to palpation. Current Medications - Current Medications Current Medications: Active Medications Acetaminophen (Acetaminophen 325 Mg Tablet) 650 mg PO Q4HR PRN PRN Reason: Pain 1 to 4 Last Admin: 08/29/21 01:15 Dose: 650 mg Dexamethasone (Dexamethasone 4 Mg/Ml Vial) 6 mg IVP DAILY [facility] Stop: 09/07/21 09:01 Last Admin: 08/29/21 08:10 Dose: 6 mg Enoxaparin Sodium (Enoxaparin 120 Mg/0.8 Ml Syringe) 115 mg SUBQ BID [facility] Last Admin: 08/29/21 22:43 Dose: 115 mg Remdesivir 100 mg/ Sodium (Chloride) 100 mls @ 200 mls/hr IV DAILY [facility] Stop: 09/02/21 09:29 Insulin Aspart (Insulin Aspart 300 Unit/3 Ml Pen) 1 - 9 unit SUBQ 0800,1200,1700,2100 [facility]; Protocol Last Admin: 08/29/21 22:01 Dose: 1 unit Insulin Glargine (Insulin Glargine 300 Unit/3 Ml Pen) 10 unit SUBQ QPM [facility] Last Admin: 08/29/21 22:02 Dose: 10 unit Metoprolol Tartrate (Metoprolol 5 Mg/5 Ml Vial) 5 mg IVP Q6HR [facility] Last Admin: 08/30/21 06:18 Dose: 5 mg Morphine Sulfate (Morphine 2 Mg/Ml Carpuject) 2 mg IVP Q2HR PRN PRN Reason: Pain 8 to 10 Last Admin: 08/30/21 03:48 Dose: 2 mg Multivitamins/Minerals (Multivitamin W/Minerals Tablet) 1 tab PO DAILYWM [facility] Last Admin: 08/29/21 14:51 Dose: 1 tab Nicotine (Nicotine 14 Mg Patch) 1 patch TOP DAILY [facility] Last Admin: 08/29/21 22:53 Dose: 1 patch Ondansetron HCl (Ondansetron Odt 4 Mg Tablet) 4 mg TL Q6HR PRN PRN Reason: Nausea / Vomiting Ondansetron HCl (Ondansetron 4 Mg/2 Ml Vial) 4 mg IVP Q6HR PRN PRN Reason: Nausea / Vomiting Oxycodone HCl (Oxycodone 5 Mg Tablet) 5 mg PO Q4HR PRN PRN Reason: Pain 5 to 7 Last Admin: 08/29/21 05:15 Dose: 5 mg Polyethylene Glycol (Polyethylene Glycol 3350 17 Gm Packet) 17 gm PO DAILY [facility] Last Admin: 08/29/21 17:34 Dose: 17 gm Sodium Chloride (Sodium Chloride Flush 0.9% 10 Ml Syringe) 10 ml IVP PRN PRN PRN Reason: NEEDED PER PROVIDER ORDERS Last Admin: 08/30/21 06:19 Dose: 10 ml Sodium Chloride (Sodium Chloride Flush 0.9% 10 Ml Syringe) 10 ml IVP 0100,0900 ,1700 [facility] Last Admin: 08/30/21 00:03 Dose: 10 ml No Known Home Medications 08/29/21 Objective - Vital Signs/Intake & Output Reviewed Vital Signs: Yes Vital Signs: Vital Signs x48h Temp Pulse Pulse Resp BP BP Pulse Ox 08/30/21 06:18 138/68 H 08/30/21 05:40 37.3 C 148 H 20 144/90 H 100 08/30/21 01:00 140 H 19 136/83 H Intake & Output: Intake & Output 08/27/21 08/28/21 08/29/21 08/30/21 23:59 23:59 23:59 23:59 Intake Total 3550 Output Total 1550 500 Balance 2000 -500 - Objective General Appearance: positive: No acute distress, Alert Eyes Bilateral: positive: Normal inspection, Conjunctivae nml ENT: positive: ENT inspection nml, Other (Nasal cannula in place.) Neck: positive: Nml inspection Respiratory: positive: No respiratory distress, Wheezes (Faint expiratory wheezes.) Cardiovascular: positive: Regular rate & rhythm, Tachycardia. negative: Systolic murmur Abdomen: positive: Non-tender, No distention. negative: Tenderness Skin: positive: Warm, Dry, Other (Multiple ulcerations over her bilateral lower extremities below the knee. Largest is about 7 x 5 cm over the right calf. The ulcerations appear clean without surrounding erythema) Extremities: positive: Pedal edema (+1 edema over her bilateral lower extremities.) Neurologic/Psychiatric: negative: Disoriented to person, Disoriented to place - Lab Results Fish Bones: 08/30/21 05:12 08/30/21 05:12 Other Labs: Lab Results x24hrs 08/30/21 08/30/21 08/29/21 Range/Units 05:12 05:12 20:31 WBC 6.9 (4.8-10.8) x10^3/uL RBC 4.83 (4.20-5.40) 10^6/uL Hgb 13.8 (12.0-16.0) g/dL Hct 41.8 (37.0-47.0) % MCV 86.5 (81.0-99.0) fL MCH 28.6 (27.0-31.0) pg MCHC 33.0 (32.0-36.0) g/dL RDW 15.0 (12.0-15.0) % Plt Count 235 (130-450) 10^3/uL MPV 10.7 (7.9-10.8) fL Neut # (Auto) 4.6 Lymph # (Auto) 1.8 [place] # (Auto) 0.4 Eos # (Auto) 0.0 Baso # (Auto) 0.0 Absolute Nucleated RBC 0.00 Total Counted Band Neuts % (Manual) (0 - 10) % Reactive Lymphs % (Man) % Abnorm Lymph % (Manual) % Metamyelocytes % ( - 0) % Nucleated RBC % 0.0 Neutrophils # (Manual) (1.5-6.6) 10^3/uL Lymphocytes # (Manual) (1.5-3.5) 10^3/uL Monocytes # (Manual) (0.0-1.0) 10^3/uL Eosinophils # (Manual) (0-0.7) 10^3/uL Basophils # (Manual) (0-0.1) 10^3/uL Differential Comment Manual Slide Review WBC Morphology (NORMAL) RBC Morph Micro Appear (NORMAL) Sodium 129 L (135-145) mmol/L Potassium 4.0 (3.5-5.0) mmol/L Chloride 96 L (101-111) mmol/L Carbon Dioxide 23 (21-32) mmol/L Anion Gap 10.0 (6-13) BUN 35 H (6-20) mg/dL Creatinine 0.8 (0.4-1.0) mg/dL Estimated GFR (MDRD) 73 L (>89) Glucose 114 H (70-100) mg/dL POC Whole Bld Glucose 162 H (70 - 100) mg/dL Estimat Average Glucose (70-100) mg/dL Hemoglobin A1c % (4.27-6.07) % Calcium 7.8 L (8.5-10.3) mg/dL C-Reactive Protein 4.5 H (0-1.0) mg/dL 25-OH Vitamin D Total (30-100) ng/mL 08/29/21 08/29/21 08/29/21 Range/Units 16:27 14:48 11:27 WBC (4.8-10.8) x10^3/uL RBC (4.20-5.40) 10^6/uL Hgb (12.0-16.0) g/dL Hct (37.0-47.0) % MCV (81.0-99.0) fL MCH (27.0-31.0) pg MCHC (32.0-36.0) g/dL RDW (12.0-15.0) % Plt Count (130-450) 10^3/uL MPV (7.9-10.8) fL Neut # (Auto) Lymph # (Auto) [place] # (Auto) Eos # (Auto) Baso # (Auto) Absolute Nucleated RBC Total Counted Band Neuts % (Manual) (0 - 10) % Reactive Lymphs % (Man) % Abnorm Lymph % (Manual) % Metamyelocytes % ( - 0) % Nucleated RBC % Neutrophils # (Manual) (1.5-6.6) 10^3/uL Lymphocytes # (Manual) (1.5-3.5) 10^3/uL Monocytes # (Manual) (0.0-1.0) 10^3/uL Eosinophils # (Manual) (0-0.7) 10^3/uL Basophils # (Manual) (0-0.1) 10^3/uL Differential Comment Manual Slide Review WBC Morphology (NORMAL) RBC Morph Micro Appear (NORMAL) Sodium (135-145) mmol/L Potassium (3.5-5.0) mmol/L Chloride (101-111) mmol/L Carbon Dioxide (21-32) mmol/L Anion Gap (6-13) BUN (6-20) mg/dL Creatinine (0.4-1.0) mg/dL Estimated GFR (MDRD) (>89) Glucose (70-100) mg/dL POC Whole Bld Glucose 215 H 172 H (70 - 100) mg/dL Estimat Average Glucose (70-100) mg/dL Hemoglobin A1c % (4.27-6.07) % Calcium (8.5-10.3) mg/dL C-Reactive Protein (0-1.0) mg/dL 25-OH Vitamin D Total 21 L (30-100) ng/mL 08/29/21 08/29/21 08/29/21 Range/Units 08:03 07:50 06:27 WBC 2.7 L (4.8-10.8) x10^3/uL RBC 4.74 (4.20-5.40) 10^6/uL Hgb 13.4 (12.0-16.0) g/dL Hct 41.2 (37.0-47.0) % MCV 86.9 (81.0-99.0) fL MCH 28.3 (27.0-31.0) pg MCHC 32.5 (32.0-36.0) g/dL RDW 14.9 (12.0-15.0) % Plt Count 212 (130-450) 10^3/uL MPV 10.7 (7.9-10.8) fL Neut # (Auto) Not Reportable Lymph # (Auto) Not Reportable [place] # (Auto) Not Reportable Eos # (Auto) Not Reportable Baso # (Auto) Not Reportable Absolute Nucleated RBC Not Reportable Total Counted 100 Band Neuts % (Manual) 2 (0 - 10) % Reactive Lymphs % (Man) 8 % Abnorm Lymph % (Manual) 0 % Metamyelocytes % 1 H ( - 0) % Nucleated RBC % Not Reportable Neutrophils # (Manual) 1.4 L (1.5-6.6) 10^3/uL Lymphocytes # (Manual) 1.1 L (1.5-3.5) 10^3/uL Monocytes # (Manual) 0.2 (0.0-1.0) 10^3/uL Eosinophils # (Manual) 0.0 (0-0.7) 10^3/uL Basophils # (Manual) 0.0 (0-0.1) 10^3/uL Differential Comment MANUAL DIFFERENTIAL Manual Slide Review Indicated WBC Morphology 2+ REACTIVE LYMPHS (NORMAL) RBC Morph Micro Appear 1+ HYPOCHROMASIA (NORMAL) Sodium (135-145) mmol/L Potassium (3.5-5.0) mmol/L Chloride (101-111) mmol/L Carbon Dioxide (21-32) mmol/L Anion Gap (6-13) BUN (6-20) mg/dL Creatinine (0.4-1.0) mg/dL Estimated GFR (MDRD) (>89) Glucose (70-100) mg/dL POC Whole Bld Glucose 169 H (70 - 100) mg/dL Estimat Average Glucose 157 H (70-100) mg/dL Hemoglobin A1c % 7.1 H (4.27-6.07) % Calcium (8.5-10.3) mg/dL C-Reactive Protein (0-1.0) mg/dL 25-OH Vitamin D Total (30-100) ng/mL Assessment/Plan - Problem List (1) Acute respiratory failure with hypoxemia Impression: This is multifactorial and likely secondary to COVID-19 pneumonia, congestive heart failure as well as suspected pulmonary embolism. Her oxygen requirements are improved and she is down to 3 L of oxygen today. We will keep her on Lovenox given she does have an acute DVT and likely pulmonary embolism. Continue Decadron and remdesivir for COVID-19 pneumonia. We will also continue to diurese her with Lasix 40 mg IV daily. Continue supplemental oxygen for goal saturation greater than 92%. (2) Pneumonia due to COVID-19 virus Impression: This is likely contributing to her respiratory failure. She remains on remdesivir and Decadron. Continue contact precautions. (3) Acute CHF Impression: Concern is for acute diastolic heart failure. Her BNP had been rising and she is quite edematous. X-ray also reveals pulmonary edema. We will continue to diurese her with Lasix 40 mg IV daily. Low-sodium diet. Daily weights. Qualifiers: Heart failure type: diastolic Qualified Code(s): I50.31 - Acute diastolic (congestive) heart failure (4) DVT of lower extremity, bilateral Impression: Duplex revealed extensive bilateral lower extremity DVTs. 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 I suspect she most definitely has a pulmonary embolism which is contributing to her hypoxia as well as atrial flutter. Echo showed no evidence of right heart strain she will continue to anticoagulate her with Lovenox. Given this is her second episode of DVT, she will need lifelong anticoagulation. (5) Atrial flutter with rapid ventricular response Impression: This is likely secondary to the pulmonary embolism that we suspect. She remains tachycardic with heart rates in 130s 140s. Echocardiogram showed preserved ejection fraction with severe increase in the left atrial volume index. She is on Lovenox and has been on Lopressor 5 mg IV every 6. We will give her 10 mg of IV diltiazem today. Will check a TSH. (6) Chest pain Impression: This may be musculoskeletal or related to the suspected pulmonary embolism. Do not suspect this is due to coronary artery disease given her flat troponins and echocardiogram showed no wall motion abnormalities. Continue with Tylenol as needed for pain and treating the underlying suspect pulmonary embolism with anticoagulation. Qualifiers: Chest pain type: chest pain on breathing Qualified Code(s): R07.1 - Chest pain on breathing; R07.81 - Pleurodynia (7) Type 2 diabetes mellitus Impression: Her A1c came back elevated at 7.1%. Her blood glucose is better controlled today after initiating Lantus. We will continue the current dose of Lantus and sliding scale. Carb controlled diet. (8) Venous stasis ulcers of both lower extremities Impression: These ulcerations appear to be due to venous stasis. There is currently no evidence of infection. I have ordered for arterial Dopplers to evaluate for peripheral vascular disease.
[2021-08-30] MEDS: DEXAMETHASONE 4 MG/ML VIAL IVP SCH (08:33)
[2021-08-30] MEDS: INSULIN ASPART 300 UNIT/3 ML PEN SUBQ SCH ×4 (08:34→22:20)
[2021-08-30] MEDS: MULTIVITAMIN W/MINERALS TABLET PO SCH (08:42)
[2021-08-30] MEDS: NICOTINE 14 MG PATCH TOP SCH (08:42)
[2021-08-30] MEDS: FUROSEMIDE 40 MG/4 ML VIAL IVP SCH (09:36)
[2021-08-30] MEDS: CHOLECALCIFEROL 25 MCG TABLET PO SCH (09:37)
[2021-08-30] MEDS: ENOXAPARIN 120 MG/0.8 ML SYRINGE SUBQ SCH ×2 (09:43→22:18)
[2021-08-30] MEDS: polyethylene glycoL 3350 17 GM PACKET PO SCH (09:44)
[2021-08-30] MEDS: REMDESIVIR 100MG VIAL 100 MG in SODIUM CHLORIDE 0.9% 100ML 100 ML IV SCH (09:45)
[2021-08-30 11:21] LABS: ESTIMATED AVERAGE GLUCOSE 163 mg/dL (70-100); HEMOGLOBIN A1c% 7.3 % (4.27-6.07)
--- NOTE | 2021-08-30 11:21 | Ultrasound Report ---
PROCEDURE: Duplex Lwr Ext Arterial Bilat INDICATIONS: Bilateral leg ulcerations. TECHNIQUE: Color and pulse Doppler interrogation was performed of both lower extremity arterial systems, with im age documentation. COMPARISON: None FINDINGS: Right lower extremity: Common femoral artery: 113 cm/sec, with biphasic flow. Deep femoral artery: 69 cm/sec, with biphasic flow. Proximal superficial femoral artery: 84 cm/sec, with biphasic flow. Mid superficial femoral artery: 92 cm/sec, with biphasic flow. Distal superficial femoral artery: 79 cm/sec, with biphasic flow. Popliteal artery: 71 cm/sec, with biphasic flow. Posterior tibial artery: 96 cm/sec, with biphasic flow. Anterior tibial artery/dorsalis pedis: Not seen proximally. 64 cm/sec distally, with biphasic flow. [place]-scale imaging description: Mild calcific plaque Left lower extremity: Common femoral artery: 108 cm/sec, with biphasic flow. Deep femoral artery: 48 cm/sec, with biphasic flow. Proximal superficial femoral artery: 105 cm/sec, with biphasic flow. Mid superficial femoral artery: 118 cm/sec, with biphasic flow. Distal superficial femoral artery: 93 cm/sec, with biphasic flow. Popliteal artery: 66 cm/sec, with monophasic flow. Posterior tibial artery: 119 cm/sec, with monophasic flow. Anterior tibial artery/dorsalis pedis: Not well seen proximally. 121 cm/sec distally, with monophasi c flow. [place]-scale imaging description: Calcific plaque IMPRESSION: 1. No significant outflow stenosis bilaterally. 2. Findings suggestive of hemodynamically significant bilateral runoff vessel stenoses. Further asses sment with MR angiography runoff evaluation is recommended. Reviewed by: Helio Lorenzo MD on 08/30/2021 11:20 AM [facility] Approved by: Helio Lorenzo MD on 08/30/2021 11:20 AM PST Station ID: [id number]
[2021-08-30] MEDS: oxyCODONE 5 MG TABLET PO PRN ×2 (11:43→22:18)
[2021-08-30] MEDS: ACETAMINOPHEN 325 MG TABLET PO PRN (18:46)
[2021-08-30] MEDS: BENZONATATE 100 MG CAPSULE PO PRN (18:47)
[2021-08-30] MEDS: guaiFENesin 600 MG TABLET PO SCH (22:18)
[2021-08-30] MEDS: METOPROLOL TARTRATE 50 MG TABLET PO SCH (22:19)
[2021-08-30] MEDS: INSULIN GLARGINE 300 UNIT/3 ML PEN SUBQ SCH (22:21)
[2021-08-31] MEDS: SODIUM CHLORIDE FLUSH 0.9% 10 ML SYRINGE IVP SCH ×3 (00:50→18:03)
[2021-08-31 05:50] LABS: BASOPHILS % (AUTO) 0.2 %; EOSINOPHILS # (AUTO) 0.1 10^3/uL (0.0-0.7); EOSINOPHILS % (AUTO) 1.9 %; HGB - HEMOGLOBIN 13.2 g/dL (12.0-16.0); LYMPHOCYTES # (AUTO) 1.8 10^3/uL (1.5-3.5); LYMPHOCYTES % (AUTO) 31.6 %; MEAN CORPUSCULAR HEMOGLOBIN 28.3 pg (27.0-31.0); MEAN CORPUSCULAR VOLUME 85.8 fL (81.0-99.0); MONOCYTES # (AUTO) 0.5 10^3/uL (0.0-1.0); MONOCYTES % (AUTO) 8.6 %; NEUTROPHILS # (AUTO) 3.3 10^3/uL (1.5-6.6); NEUTROPHILS % (AUTO) 57.2 %; PLT - PLATELET COUNT 223 10^3/uL (130-450); RED BLOOD COUNT 4.66 10^6/uL (4.20-5.40); RED CELL DISTRIBUTION WIDTH 14.9 % (12.0-15.0); WHITE BLOOD COUNT 5.8 x10^3/uL (4.8-10.8)
[2021-08-31] MEDS: MORPHINE 2 MG/ML CARPUJECT IVP PRN (06:04)
[2021-08-31 06:06] LABS: CALCIUM 8.1 mg/dL (8.5-10.3); CREATININE 0.8 mg/dL (0.4-1.0); CRP - C-REACTIVE PROTEIN 6.2 mg/dL (0-1.0); POTASSIUM 4.2 mmol/L (3.5-5.0)
--- NOTE | 2021-08-31 08:00 | PROVIDER PROGRESS NOTE ---
Subjective - Prog Note Date Prog Note Date: 08/31/21 - Subjective Subjective: Still has left-sided back pain but she feels improved overall. Is not feel short of breath. She was able to work with physical therapy today and feels at her baseline. She does not want to go to SNF. Current Medications - Current Medications Current Medications: Active Medications Acetaminophen (Acetaminophen 325 Mg Tablet) 650 mg PO Q4HR PRN PRN Reason: Pain 1 to 4 Last Admin: 08/30/21 18:46 Dose: 650 mg Benzonatate (Benzonatate 100 Mg Capsule) 100 mg PO TID PRN PRN Reason: Cough Last Admin: 08/30/21 18:47 Dose: 100 mg Cholecalciferol (Cholecalciferol 25 Mcg Tablet) 50 mcg PO DAILY [facility] Last Admin: 08/31/21 08:46 Dose: 50 mcg Dexamethasone (Dexamethasone 4 Mg/Ml Vial) 6 mg IVP DAILY [facility] Stop: 09/07/21 09:01 Last Admin: 08/31/21 08:50 Dose: 6 mg Enoxaparin Sodium (Enoxaparin 120 Mg/0.8 Ml Syringe) 115 mg SUBQ BID [facility] Last Admin: 08/31/21 10:15 Dose: 115 mg Furosemide (Furosemide 40 Mg/4 Ml Vial) 40 mg IVP DAILY [facility] Last Admin: 08/31/21 08:50 Dose: 40 mg Guaifenesin (Guaifenesin 600 Mg Tablet) 600 mg PO BID [facility] Last Admin: 08/31/21 08:46 Dose: 600 mg Remdesivir 100 mg/ Sodium (Chloride) 100 mls @ 200 mls/hr IV DAILY [facility] Stop: 09/02/21 09:29 Last Admin: 08/31/21 10:15 Dose: 200 mls/hr Insulin Aspart (Insulin Aspart 300 Unit/3 Ml Pen) 2 - 10 unit SUBQ 0800,1200,1700,2100 [facility]; Protocol Last Admin: 08/31/21 08:44 Dose: Not Given Insulin Glargine (Insulin Glargine 300 Unit/3 Ml Pen) 10 unit SUBQ QPM [facility] Last Admin: 08/30/21 22:21 Dose: 10 unit Metoprolol Tartrate (Metoprolol Tartrate 50 Mg Tablet) 50 mg PO BID [facility] Last Admin: 08/31/21 08:59 Dose: 50 mg Morphine Sulfate (Morphine 2 Mg/Ml Carpuject) 2 mg IVP Q2HR PRN PRN Reason: Pain 8 to 10 Last Admin: 08/31/21 06:04 Dose: 2 mg Multivitamins/Minerals (Multivitamin W/Minerals Tablet) 1 tab PO DAILYWM [facility] Last Admin: 08/31/21 08:46 Dose: 1 tab Nicotine (Nicotine 14 Mg Patch) 1 patch TOP DAILY [facility] Last Admin: 08/31/21 08:41 Dose: 1 patch Ondansetron HCl (Ondansetron Odt 4 Mg Tablet) 4 mg TL Q6HR PRN PRN Reason: Nausea / Vomiting Ondansetron HCl (Ondansetron 4 Mg/2 Ml Vial) 4 mg IVP Q6HR PRN PRN Reason: Nausea / Vomiting Last Admin: 08/31/21 08:38 Dose: 4 mg Oxycodone HCl (Oxycodone 5 Mg Tablet) 5 mg PO Q4HR PRN PRN Reason: Pain 5 to 7 Last Admin: 08/30/21 22:18 Dose: 5 mg Polyethylene Glycol (Polyethylene Glycol 3350 17 Gm Packet) 17 gm PO DAILY [facility] Last Admin: 08/31/21 08:48 Dose: 17 gm Sodium Chloride (Sodium Chloride Flush 0.9% 10 Ml Syringe) 10 ml IVP PRN PRN PRN Reason: NEEDED PER PROVIDER ORDERS Last Admin: 08/30/21 06:19 Dose: 10 ml Sodium Chloride (Sodium Chloride Flush 0.9% 10 Ml Syringe) 10 ml IVP 0100,090 0,1700 [facility] Last Admin: 08/31/21 08:38 Dose: 10 ml No Known Home Medications 08/29/21 Objective - Vital Signs/Intake & Output Reviewed Vital Signs: Yes Vital Signs: Vital Signs x48h Temp Pulse Resp BP Pulse Ox 08/31/21 04:56 36.9 C 52 L 20 131/72 H 96 08/31/21 01:00 36.5 C 67 18 124/76 98 Intake & Output: Intake & Output 08/28/21 08/29/21 08/30/21 08/31/21 23:59 23:59 23:59 23:59 Intake Total 3550 1130 350 Output Total 1550 2700 100 Balance 1999 -1570 250 - Objective General Appearance: positive: No acute distress, Alert Eyes Bilateral: positive: Normal inspection ENT: positive: ENT inspection nml Neck: positive: Nml inspection Respiratory: positive: No respiratory distress, Rales. negative: Wheezes Cardiovascular: positive: Regular rate & rhythm. negative: Irregularly irregular, Tachycardia Abdomen: positive: Non-tender, No distention. negative: Tenderness Skin: positive: Warm, Dry, Other (Multiple bilateral lower extremity ulcerations the largest being about 7 x 4 cm over theright calf. No surrounding erythema or purulent drainage.) Extremities: positive: Pedal edema (Trace to +1 edema in bilateral lower extremities.) - Lab Results Fish Bones: 08/31/21 04:55 08/31/21 04:55 Other Labs: Lab Results x24hrs 08/31/21 08/31/21 08/31/21 Range/Units 07:45 04:55 04:55 WBC 5.8 (4.8-10.8) x10^3/uL RBC 4.66 (4.20-5.40) 10^6/uL Hgb 13.2 (12.0-16.0) g/dL Hct 40.0 (37.0-47.0) % MCV 85.8 (81.0-99.0) fL MCH 28.3 (27.0-31.0) pg MCHC 33.0 (32.0-36.0) g/dL RDW 14.9 (12.0-15.0) % Plt Count 223 (130-450) 10^3/uL MPV 11.0 H (7.9-10.8) fL Neut # (Auto) 3.3 (1.5-6.6) 10^3/uL Lymph # (Auto) 1.8 (1.5-3.5) 10^3/uL [place] # (Auto) 0.5 (0.0-1.0) 10^3/uL Eos # (Auto) 0.1 (0.0-0.7) 10^3/uL Baso # (Auto) 0.0 (0.0-0.1) 10^3/uL Absolute Nucleated RBC 0.00 x10^3/uL Nucleated RBC % 0.0 /100WBC Sodium 132 L (135-145) mmol/L Potassium 4.2 (3.5-5.0) mmol/L Chloride 98 L (101-111) mmol/L Carbon Dioxide 24 (21-32) mmol/L Anion Gap 10.0 (6-13) BUN 33 H (6-20) mg/dL Creatinine 0.8 (0.4-1.0) mg/dL Estimated GFR (MDRD) 73 L (>89) Glucose 146 H (70-100) mg/dL POC Whole Bld Glucose 91 (70 - 100) mg/dL Estimat Average Glucose (70-100) mg/dL Hemoglobin A1c % (4.27-6.07) % Calcium 8.1 L (8.5-10.3) mg/dL C-Reactive Protein 6.2 H (0-1.0) mg/dL TSH (0.34-5.60) uIU/mL 08/30/21 08/30/21 08/30/21 Range/Units 20:40 11:29 05:15 WBC (4.8-10.8) x10^3/uL RBC (4.20-5.40) 10^6/uL Hgb (12.0-16.0) g/dL Hct (37.0-47.0) % MCV (81.0-99.0) fL MCH (27.0-31.0) pg MCHC (32.0-36.0) g/dL RDW (12.0-15.0) % Plt Count (130-450) 10^3/uL MPV (7.9-10.8) fL Neut # (Auto) (1.5-6.6) 10^3/uL Lymph # (Auto) (1.5-3.5) 10^3/uL [place] # (Auto) (0.0-1.0) 10^3/uL Eos # (Auto) (0.0-0.7) 10^3/uL Baso # (Auto) (0.0-0.1) 10^3/uL Absolute Nucleated RBC x10^3/uL Nucleated RBC % /100WBC Sodium (135-145) mmol/L Potassium (3.5-5.0) mmol/L Chloride (101-111) mmol/L Carbon Dioxide (21-32) mmol/L Anion Gap (6-13) BUN (6-20) mg/dL Creatinine (0.4-1.0) mg/dL Estimated GFR (MDRD) (>89) Glucose (70-100) mg/dL POC Whole Bld Glucose 267 H 143 H (70 - 100) mg/dL Estimat Average Glucose (70-100) mg/dL Hemoglobin A1c % (4.27-6.07) % Calcium (8.5-10.3) mg/dL C-Reactive Protein (0-1.0) mg/dL TSH 1.57 (0.34-5.60) uIU/mL 08/30/21 Range/Units 05:12 WBC (4.8-10.8) x10^3/uL RBC (4.20-5.40) 10^6/uL Hgb (12.0-16.0) g/dL Hct (37.0-47.0) % MCV (81.0-99.0) fL MCH (27.0-31.0) pg MCHC (32.0-36.0) g/dL RDW (12.0-15.0) % Plt Count (130-450) 10^3/uL MPV (7.9-10.8) fL Neut # (Auto) (1.5-6.6) 10^3/uL Lymph # (Auto) (1.5-3.5) 10^3/uL [place] # (Auto) (0.0-1.0) 10^3/uL Eos # (Auto) (0.0-0.7) 10^3/uL Baso # (Auto) (0.0-0.1) 10^3/uL Absolute Nucleated RBC x10^3/uL Nucleated RBC % /100WBC Sodium (135-145) mmol/L Potassium (3.5-5.0) mmol/L Chloride (101-111) mmol/L Carbon Dioxide (21-32) mmol/L Anion Gap (6-13) BUN (6-20) mg/dL Creatinine (0.4-1.0) mg/dL Estimated GFR (MDRD) (>89) Glucose (70-100) mg/dL POC Whole Bld Glucose (70 - 100) mg/dL Estimat Average Glucose 163 H (70-100) mg/dL Hemoglobin A1c % 7.3 H (4.27-6.07) % Calcium (8.5-10.3) mg/dL C-Reactive Protein (0-1.0) mg/dL TSH (0.34-5.60) uIU/mL Assessment/Plan - Problem List (1) Acute respiratory failure with hypoxemia Impression: This is now resolved. She is now on room air with oxygen saturations above 93%. This was felt secondary to COVID-19 pneumonia, heart failure exacerbation as well as pulmonary embolisms. We will switch her to oral diuretics and oral anticoagulation. We will look to discontinue Decadron if she remains on room air. (2) Pneumonia due to COVID-19 virus Impression: This is contributing to her respiratory failure with hypoxia. She is now on room air and if she can remain on room air we will discontinue Decadron. Continue contact precautions. (3) Acute CHF Impression: This was likely attributing to her respiratory failure. Her x-ray was consistent with edema and her BNP was elevated. Overall her lower extremity edema is improved and she is responded well to diuresis. We will repeat a BNP and look to switch her to oral diuretics tomorrow. Qualifiers: Heart failure type: diastolic Qualified Code(s): I50.31 - Acute diastolic (congestive) heart failure (4) DVT of lower extremity, bilateral Impression: Duplex revealed extensive bilateral lower extremity DVTs. 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 I suspect she most definitely has a pulmonary embolism which is contributing to her hypoxia as well as atrial flutter. Echo showed no evidence of right heart strain she will continue to anticoagulate her with Lovenox. Given this is her second episode of DVT, she will need lifelong anticoagulation. We will switch her to oral eliquis this evening. (5) Atrial flutter with rapid ventricular response Impression: Her heart rate is improved after starting her to oral metoprolol yesterday evening. Her heart has been stable in the 60s to 90s. We will continue her on metoprolol 50 mg twice daily. Continue with Eliquis for anticoagulation. (6) Chest pain Impression: This is left-sided chest/back pain which is musculoskeletal in nature and likely due to either pulmonary embolism or costochondritis. Continue with Tylenol as needed for pain. Anticoagulation with Eliquis now. Qualifiers: Chest pain type: chest pain on breathing Qualified Code(s): R07.1 - Chest pain on breathing; R07.81 - Pleurodynia (7) Type 2 diabetes mellitus Impression: Her A1c was 7.3%. Her blood glucose was controlled on the Lantus. This will al so improve once the Decadron is discontinued. Continue sliding scale. Carb controlled diet. (8) Venous stasis ulcers of both lower extremities Impression: Her ulcers in the lower extremities are likely due to basis and due to chronic venous thrombosis. We did do arterial Dopplers which showed no significant flow sounds bilaterally. She did have hemodynamically significant bilateral runoff vessel stenosis and further assessment with MR angiography was recommended. This can be done on an outpatient basis as it is not available over the weekend.
[2021-08-31] MEDS: ONDANSETRON 4 MG/2 ML VIAL IVP PRN (08:38)
[2021-08-31] MEDS: NICOTINE 14 MG PATCH TOP SCH (08:41)
[2021-08-31] MEDS: INSULIN ASPART 300 UNIT/3 ML PEN SUBQ SCH ×4 (08:44→21:16)
[2021-08-31] MEDS: MULTIVITAMIN W/MINERALS TABLET PO SCH (08:46)
[2021-08-31] MEDS: guaiFENesin 600 MG TABLET PO SCH ×2 (08:46→21:15)
[2021-08-31] MEDS: CHOLECALCIFEROL 25 MCG TABLET PO SCH (08:46)
[2021-08-31] MEDS: polyethylene glycoL 3350 17 GM PACKET PO SCH (08:48)
[2021-08-31] MEDS: FUROSEMIDE 40 MG/4 ML VIAL IVP SCH (08:50)
[2021-08-31] MEDS: DEXAMETHASONE 4 MG/ML VIAL IVP SCH (08:50)
[2021-08-31] MEDS: METOPROLOL TARTRATE 50 MG TABLET PO SCH ×2 (08:59→21:15)
[2021-08-31] MEDS: ENOXAPARIN 120 MG/0.8 ML SYRINGE SUBQ SCH (10:15)
[2021-08-31] MEDS: REMDESIVIR 100MG VIAL 100 MG in SODIUM CHLORIDE 0.9% 100ML 100 ML IV SCH (10:15)
[2021-08-31] MEDS: oxyCODONE 5 MG TABLET PO PRN (17:59)
[2021-08-31] MEDS: BENZONATATE 100 MG CAPSULE PO PRN (17:59)
[2021-08-31] MEDS ORDERED: ATORVASTATIN 40 MG TABLET PO SCH (21:00)
[2021-08-31] MEDS: ACETAMINOPHEN 325 MG TABLET PO PRN (21:05)
[2021-08-31] MEDS: APIXABAN 5 MG TABLET PO SCH (21:16)
[2021-08-31] MEDS: INSULIN GLARGINE 300 UNIT/3 ML PEN SUBQ SCH (21:17)
[2021-08-31] MEDS ORDERED: CALCIUM CARBONATE CHEW 500 MG TABLET PO PRN (21:41)
[2021-09-01] MEDS: oxyCODONE 5 MG TABLET PO PRN ×2 (00:05→05:07)
[2021-09-01] MEDS: SODIUM CHLORIDE FLUSH 0.9% 10 ML SYRINGE IVP SCH ×2 (00:06→08:21)
[2021-09-01 05:45] LABS: BASOPHILS % (AUTO) 0.1 %; EOSINOPHILS % (AUTO) 0.1 %; HCT - HEMATOCRIT 43.7 % (37.0-47.0); HGB - HEMOGLOBIN 14.3 g/dL (12.0-16.0); LYMPHOCYTES # (AUTO) 2.4 10^3/uL (1.5-3.5); LYMPHOCYTES % (AUTO) 32.5 %; MEAN CORPUSCULAR HEMOGLOBIN 28.6 pg (27.0-31.0); MEAN CORPUSCULAR HGB CONC 32.7 g/dL (32.0-36.0); MEAN CORPUSCULAR VOLUME 87.4 fL (81.0-99.0); MEAN PLATELET VOLUME 11.2 fL (7.9-10.8); MONOCYTES # (AUTO) 0.6 10^3/uL (0.0-1.0); MONOCYTES % (AUTO) 7.9 %; NEUTROPHILS # (AUTO) 4.3 10^3/uL (1.5-6.6); PLT - PLATELET COUNT 252 10^3/uL (130-450); RED CELL DISTRIBUTION WIDTH 14.9 % (12.0-15.0); WHITE BLOOD COUNT 7.2 x10^3/uL (4.8-10.8)
[2021-09-01 06:02] LABS: CALCIUM 8.5 mg/dL (8.5-10.3); CREATININE 0.8 mg/dL (0.4-1.0); POTASSIUM 4.4 mmol/L (3.5-5.0)
[2021-09-01] MEDS: ONDANSETRON 4 MG/2 ML VIAL IVP PRN (08:21)
[2021-09-01] MEDS: DEXAMETHASONE 4 MG/ML VIAL IVP SCH (08:21)
[2021-09-01] MEDS: polyethylene glycoL 3350 17 GM PACKET PO SCH (08:29)
[2021-09-01] MEDS: CHOLECALCIFEROL 25 MCG TABLET PO SCH (08:30)
[2021-09-01] MEDS: MULTIVITAMIN W/MINERALS TABLET PO SCH (08:31)
[2021-09-01] MEDS: METOPROLOL TARTRATE 50 MG TABLET PO SCH (08:31)
[2021-09-01] MEDS: guaiFENesin 600 MG TABLET PO SCH (08:31)
[2021-09-01] MEDS: APIXABAN 5 MG TABLET PO SCH (08:31)
[2021-09-01] MEDS: INSULIN ASPART 300 UNIT/3 ML PEN SUBQ SCH ×2 (08:32→12:07)
[2021-09-01] MEDS: REMDESIVIR 100MG VIAL 100 MG in SODIUM CHLORIDE 0.9% 100ML 100 ML IV SCH (08:42)
[2021-09-01] MEDS ORDERED: NICOTINE 21 MG PATCH TOP SCH (09:00)
[2021-09-01] MEDS ORDERED: SENNA 8.6 MG TABLET PO SCH (09:00)
[2021-09-01] MEDS ORDERED: DOCUSATE SODIUM 250 MG CAPSULE PO SCH (09:00)
[2021-09-01] MEDS ORDERED: FUROSEMIDE 40 MG TABLET PO SCH (09:00)
--- NOTE | 2021-09-01 11:04 | Discharge Plan ---
Discharge Plan Problem Reviewed?: Yes Disposition: Home, Self Care Condition: Stable Prescriptions: Apixaban [Eliquis] 10 mg PO BID 6 Days #24 tablet Apixaban [Eliquis] 5 mg PO BID #60 tablet Blood-Glucose Meter [Glucometer] 1 each MC TIDWM #1 each metFORMIN [Glucophage] 500 mg PO BIDWM #60 tablet Blood Sugar Diagnostic [Glucose Test Strip] 1 each TIDWM #90 strip Lancets 1 each MC TIDWM #90 each Furosemide [Lasix] 40 mg PO DAILY #30 tablet Atorvastatin [Lipitor] 40 mg PO QPM #30 tablet Metoprolol Tartrate [Lopressor] 50 mg PO BID #60 tablet Calcium Carbonate [Tums (Calcium Carbonate 500mg)] 500 mg PO TID PRN #20 tablet PRN Reason: Indigestion Cholecalciferol [Vitamin D3] 50 mcg PO DAILY #30 tablet Diet: Diabetic Activity Restrictions: Activity as Tolerated Instruction Topics: Diabetes Type 2 Oral Meds, DVT Dc Health Concerns: You were admitted to the hospital because of low oxygen due to COVID pneumonia as well a blood clot in your lungs. You also had fluid surrounding your lungs. You were treated with steroids for the COVID-19 pneumonia as well as blood thinners for the blood clots. We gave you a diuretic to help get fluid off of your body. You are found to have diabetes during his hospitalization and you will need to take a medicine called metformin to help control your blood sugars. You were also found to have an irregular heart rhythm called atrial flutter. This can increase your stroke and so we have you on a blood thinner to help reduce your risk of stroke. We will also be taking metoprolol to help control your heart rate and prevent your heart rate from getting too high. Plan of Treatment: You were found to be a diabetic so please begin to take metformin 500 mg twice daily. You will need to follow-up with your PCP to ensure your blood glucose is stable. We have prescribed you a glucometer as well as test strips. Please take Eliquis 10 mg twice a day for 6 more days followed by 5 mg twice a day. You will need to be on a blood thinner for the rest of your life given you have now had blood clots twice. Please also begin to take Lipitor 40 mg in the evening. You are also prescribed metoprolol to help control your blood pressure and heart rate. Please make sure to follow-up with your primary care physician in 1 week. You are provided with a list of primary care doctors in the area. You should discuss with them regarding getting further imaging of your blood vessels in your legs as blood flow is not very good there. We have put you on medication to help with this but you will need further imaging and may be seeing a specialist in the future. Assessment: The patient expressed understanding of the treatment plan. Additional Instructions or Follow Up instructions: Please make an appointment with a primary care physician within the next week. Follow-Up Care: Home Health - RN No Smoking: If you smoke, Please STOP! Call for help.
[2021-09-01 11:30] VITALS: BP 152/98
--- NOTE | 2021-09-01 11:52 | DISCHARGE SUMMARY ---
Discharge Summary Admit Date: 08/29/21 Discharge Date: 09/01/21 Discharging Provider: Merlin Gamez Code Status: Attempt Resuscitation Condition at Discharge: Stable Discharge Disposition: 01 Home, Self Care - DIAGNOSES Admission Diagnoses: Acute respiratory failure with hypoxemia Pneumonia due to COVID-19 virus Acute CHF History DVT in adulthood Chest pain Venous stasis ulcers of both lower extremities Tachycardia Self-neglect Discharge Diagnoses with Status of Each Condition: Acute respiratory failure with hypoxemia - resolved. Pneumonia due to COVID-19 virus - improved. Acute diastolic CHF - improved. DVT of lower extremity, bilateral - ongoing. Atrial flutter with rapid medical response - resolved. Chest pain - resolved. Type 2 diabetes mellitus - stable. Venous stasis ulcers of both lower extremity - stable. - HPI History of Present Illness: H&P per Dr. Miller: This is a patient who has either Parkinson's disease or multiple sclerosis or both but has not seen a neurologist for over 12 years. She has not seen a primary care provider in probably 11 years. She lives with her partner since 2008 and [place]. I am unable to get a history from the patient because of severe dyspnea and such a weak, almost inaudible voice. Her partner cannot state why they have not been able to find care. Her last primary care provider was Dr. Escalera in [place]. The patient used to take Coumadin for history of blood clots that were in 2009. But since she stopped seeing her primary care provider, has not had Coumadin. Again, her partner is unclear as to why they let the prescription lapse. She is described as a limited mobility patient due to her movement disorder. She spends most of her time sitting or laying in bed. She is able to ambulate to go to the bathroom, or to occasionally take a shower. She can feed herself, and dress her self. She is disabled due to her neurological disease. Her partner does not describe any mental illness, cognitive deficit. She is unable to describe why the lack of medical care but they have been pondering moving somewhere where it would be easier for them. The patient has developed ulcers on her legs and has been putting Neosporin on them, cleaning them. But has not sought medical care for them. In the last week, she developed a cough, and gradually worsening chest congestion, lethargy. Her partner denies fever. About 2 to 3 days ago she started getting more short of breath and having sharp pleuritic chest pain. She is unvaccinated. Today, the sharp pleuritic chest pain was so severe that it was taking away her breath. They called an ambulance. In the ambulance she was given Solu-Medrol 125 mg, morphine 2 mg, albuterol. By the time she was in our emergency room she is on a nonrebreather mask with an O2 sat of 99%. She was breathing anywhere from 29 to 40 breaths a minute. Blood pressure was 142/114. Heart rate was 147. She was given albuterol, Lovenox, Lasix, metoprolol, and morphine in the emergency room. She is still severely short of breath with fast shallow respirations. She has leg ulcers that are quite deep. Chest x-ray has congestive heart failure changes with pulmonary edema. She has underlying bilateral scattered infiltrates. It is difficult to say whether this is pne umonia or CHF. Trace bilateral pleural effusion. She was COVID-positive. The ER provider did try to order a CT pulmonary angiogram but the patient is so short of breath she is unable to lay down. She panics and came off the CT table on her own by leaping off the table. While she lives with her life partner since 2008, they are not legally . They live more as roommates. Her life partner says that she has no legal standing with her partner. There is no formal power of corporate attorney. The patient does have a daughter who she is estranged from and has not spoken to in years. Her partner, Claudia, says there is no phone number available to call the daughter. As such the patient is a full code until we can have an Advanced Care Planning coversation with her. - HOSPITAL COURSE Hospital Course: She was admitted to the floor for acute hypoxic respiratory failure secondary to COVID-19 pneumonia, diastolic heart failure, and suspected pulmonary embolisms. She was treated with remdesivir and Decadron as well as IV Lasix. She is also started on Lovenox empirically. We could not obtain a CT angiogram as she could not lay flat for the imaging. Duplex was obtained which showed significant bilateral lower extremity DVTs. Echocardiogram showed no evidence of right heart strain. Her oxygen requirements improved throughout the hospitalization and she was switched to oral Lasix as well as Eliquis for anticoagulation. She did have extensive lower extremity ulcers which appear to be secondary to venous stasis. We did obtain arterial Dopplers which did suggest stenosis of the runoff vessels. MR angiography was recommended by radiologist but we do not have this available over the weekend and so I discussed with the patient that this will need to be done on an outpatient basis. She has been on room air now for more than 24 hours and prefers to go home. We did discuss [facility] [place] [facility] clinic wound care for the wounds in her lower extremities and she is agreeable to this but a referral will be placed by her new primary care physician. We did order home health wound care for her. She was also noted to be a diabetic during this hospitalization and she was discharged on metformin. She also had atrial flutter with rapid ventricular response and her rate is now controlled on metoprolol. She is anticoagulated with the Eliquis. - ALLERGIES Allergies/Adverse Reactions: Allergies Allergy/AdvReac Type Severity Reaction Status Date / Time No Known Drug Allergies Allergy Verified 08/28/21 20:29 - MEDICATIONS Home Medications: Ambulatory Orders Medication Instructions Recorded Confirmed Apixaban [Eliquis] 5 mg PO BID #60 tablet 09/01/21 Apixaban [Eliquis] 10 mg PO BID 6 Days #24 tablet 09/01/21 Atorvastatin [Lipitor] 40 mg PO QPM #30 tablet 09/01/21 Blood Sugar Diagnostic [Glucose 1 each MC TIDWM #90 strip 09/01/21 Test Strip] Blood-Glucose Meter [Glucometer] 1 each MC TIDWM #1 each 09/01/21 Calcium Carbonate [Tums (Calcium 500 mg PO TID PRN #20 tablet 09/01/21 Carbonate 500mg)] Cholecalciferol [Vitamin D3] 50 mcg PO DAILY #30 tablet 09/01/21 Furosemide [Lasix] 40 mg PO DAILY #30 tablet 09/01/21 Lancets 1 each MC TIDWM #90 each 09/01/21 Metoprolol Tartrate [Lopressor] 50 mg PO BID #60 tablet 09/01/21 Nicotine 21 mg Patch [Nicoderm] 1 each TOP Q24H #14 patch 09/01/21 metFORMIN [Glucophage] 500 mg PO BIDWM #60 tablet 09/01/21 - PHYSICAL EXAM AT DISCHARGE General Appearance: positive: No acute distress, Alert Eyes Bilateral: positive: Normal inspection, No lid inflammation ENT: positive: ENT inspection nml Neck: positive: Nml inspection Respiratory: positive: No respiratory distress. negative: Wheezes, Rales Cardiovascular: positive: Irregularly irregular. negative: Tachycardia, Systolic murmur Abdomen: positive: Non-tender, No distention. negative: Tenderness Skin: positive: Warm, Dry, Other (Bilateral lower extremity ulcerations with largest being 7 x 4 cm over the right calf. No surrounding erythema or purulent drainage.) Extremities: positive: Pedal edema (Trace to +1 edema in bilateral lower extremities.) Neurologic/Psychiatric: negative: Disoriented to person, Disoriented to place Physical Exam Other/Comments: Vital Signs - 24 hr 08/31/21 08/31/21 08/31/21 21:00 21:15 23:43 Temperature 36.6 C 36.9 C Heart Rate [ 95 67 Brachial] Heart Rate [ Monitoring electrodes] Respiratory 18 22 Rate Blood Pressure 154/86 H Blood Pressure 154/86 H [Left Brachial artery] Blood Pressure 112/65 [Right Brachial artery] O2 Saturation 96 96 09/01/21 09/01/21 09/01/21 05:00 05:27 08:31 Temperature 36.4 C L Heart Rate [ Brachial] Heart Rate [ 100 Monitoring electrodes] Respiratory 20 Rate Blood Pressure 151/85 H Blood Pressure [Left Brachial artery] Blood Pressure 101/55 L [Right Brachial artery] O2 Saturation 94 09/01/21 09/01/21 09:00 11:23 Temperature 36.4 C L Heart Rate [ Brachial] Heart Rate [ 92 96 Monitoring electrodes] Respiratory 19 21 Rate Blood Pressure Blood Pressure 151/85 H 152/98 H [Left Brachial artery] Blood Pressure [Right Brachial artery] O2 Saturation 93 92 Oxygen O2 Source Room air Oxygen Flow Rate 2 - LABS Result Diagrams: 09/01/21 05:23 09/01/21 05:23 - DIAGNOSTIC IMAGING Diagnostic Imaging Results: Final report reviewed - FOLLOW UP Follow Up: She was given a list of primary care physicians in the area and asked to follow- up with them in 1 to 2 weeks. She will need MR angiography on outpatient basis for for better evaluation of potential peripheral vascular disease. She is prescribed Eliquis, metoprolol, Lasix. - TIME SPENT Time Spent in Discharge (Minutes): 34
== END 2021-09-01 13:07 | disposition home or self-care (01) | DRG 177 ==
LOC: ED 20:17 → MS2 22:50
PROVIDERS: ADMIT Specialist; ATTEND Internal Medicine
PROC: XW033E5 Introduction of Remdesivir Anti-infective into Peripheral Vein, Percutaneous Approach, New Technology Group 5 (ICD-10-PCS; principal; 2021-08-28)
DX: U07.1 COVID-19 (principal); J12.82 Pneumonia due to coronavirus disease 2019; J45.909 Unspecified asthma, uncomplicated; I89.0 Lymphedema, not elsewhere classified; E66.9 Obesity, unspecified; J96.01 Acute respiratory failure with hypoxia; I50.31 Acute diastolic (congestive) heart failure; I82.403 Acute embolism and thrombosis of unspecified deep veins of lower extremity, bilateral; I48.92 Unspecified atrial flutter; L97.929 Non-pressure chronic ulcer of unspecified part of left lower leg with unspecified severity; L97.919 Non-pressure chronic ulcer of unspecified part of right lower leg with unspecified severity; E11.9 Type 2 diabetes mellitus without complications; I87.2 Venous insufficiency (chronic) (peripheral); F17.210 Nicotine dependence, cigarettes, uncomplicated; G35 Multiple sclerosis; R07.1 Chest pain on breathing; R07.81 Pleurodynia; Z79.01 Long term (current) use of anticoagulants; Z79.84 Long term (current) use of oral hypoglycemic drugs; Z91.19 Patient's noncompliance with other medical treatment and regimen
CPT/HCPCS: 36415; 71045; 80048; 80053; 82306; 83036; 83690; 83880; 84443; 84484; 85025; 85379; 85610; 86140; 87631; 92523; 93005; 93306; 93925; 93970; 94640; 94664; 96374; 96375; 96376; 97162; 99285; 99291; A9270; J1650; J1815; J7120; Q0162; Q9967; 0202U